=== PATIENT | male | born 1945 | race Caucasian/White ===

== ENCOUNTER → 2024-08-12 | Outpatient (CLI) | payer MEDICARE, BC, SELFPAY ==
[2024-08-12 12:00] LABS: Anion Gap 8 (7-16); BUN/Creatinine Ratio 19 Ratio (12-20); Blood Urea Nitrogen 23 mg/dL (9-23); Carbon Dioxide 24.4 mMol/L (20.0-31.0); Chloride 106 mMol/L (98-107); Creatinine (Component) 1.2 mg/dL (0.6-1.3); Glucose 118 mg/dL (74-106); Osmolality,Calculated 280 (275-295); Potassium 4.9 mMol/L (3.4-5.1); Sodium 138 mMol/L (136-145); eGFR > 60 See Note
== END | disposition home or self-care (01) ==
LOC: COPL 10:55
PROVIDERS: PCP Internal Medicine; Referring Provider Internal Medicine; Visit Provider Internal Medicine
DX: I10 Essential (primary) hypertension (principal)
CPT/HCPCS: 36415; 80069

== ENCOUNTER 2024-09-21 09:42 | Day surgery (SDC) | payer MEDICARE, BC, SELFPAY ==
[2024-09-14 14:59] VITALS: BMI 24.4
--- NOTE | 2024-09-18 00:01 | EKG_ITS ---
[facility] Test Date: 2024-09-18 Pat Name: DONTE BOBBY Department: Room: - Gender: Male Manufacturer Agent: MAYA : 1945 Requested By: Bennie Prieto Order Number: [id number] Reading MD: Bennie Prieto Measurements Intervals [place] Rate: 89 P: 58 MT: 188 QRS: 45 QRSD: 72 T: 62 QT: 319 QTc: 389 Interpretive Statements SINUS RHYTHM WITH SINUS ARRHYTHMIA POSSIBLE LEFT ATRIAL ENLARGEMENT SEPTAL MYOCARDIAL INFARCTION , OF INDETERMINATE AGE No previous ECG available for comparison /store/S0/[id number]/[id number].pdf
[2024-09-18 11:12] LABS: Basophils # (Auto) 0.1 Thou/mm3 (0.0-0.2); Basophils % (Auto) 1 % (0-2.5); Eosinophils # (Auto) 0.1 Thou/mm3 (0.0-0.5); Eosinophils % (Auto) 2 % (0-10); Hematocrit 45.2 % (41.0-53.0); Immature Granulocytes % (Auto) 0 % (0-0); Immature Granulocytes Auto 0.01 Thou/mm3 (0.00-0.00); Lymphocytes # (Auto) 1.9 Thou/mm3 (1.0-4.8); Lymphocytes % (Auto) 34 % (10-50); Mean Corpuscular HGB Conc 33.2 g/dl (31.0-37.0); Mean Corpuscular Hemoglobin 30.8 pg (25.0-35.0); Mean Corpuscular Volume 93 fL (80-100); Monocytes # (Auto) 0.4 Thou/mm3 (0.0-0.8); Monocytes % (Auto) 7 % (0-12); Neutrophils # (Auto) 3.2 Thou/mm3 (1.8-7.7); Neutrophils % (Auto) 56 % (37-80); Nucleated Red Blood Cell % 0 /100 WBC (0); Platelet Count 354 Thou/mm3 (140-440); RDW Standard Deviation 45.3 fL (35.1-43.9); Red Blood Count 4.87 Miln/mm3 (4.50-5.90); White Blood Count 5.8 Thou/mm3 (3.8-10.6)
[2024-09-18 11:24] LABS: Partial Thromboplastin Time 27.2 Seconds (22.0-36.0); Prothrombin Time 10.9 Seconds (9.0-12.2)
[2024-09-18 11:27] LABS: Anion Gap 8 (7-16); BUN/Creatinine Ratio 20 Ratio (12-20); Blood Urea Nitrogen 28 mg/dL (9-23); Calcium 9.7 mg/dL (8.3-10.6); Carbon Dioxide 23.9 mMol/L (20.0-31.0); Chloride 105 mMol/L (98-107); Creatinine (Component) 1.4 mg/dL (0.6-1.3); Estimated Creatinine Clearance 45.4 mL/min (>60); Glucose 182 mg/dL (74-106); Osmolality,Calculated 284 (275-295); Potassium 4.7 mMol/L (3.4-5.1); Sodium 137 mMol/L (136-145); eGFR 50 See Note
[2024-09-21] VITALS (15 sets, daily range): BP systolic 130–190; BP diastolic 63–100; PULSE 55–82; RESP 12–21; TEMP 36.8–37.1; O2SAT 96–100; BMI 23.8
--- NOTE | 2024-09-21 13:20 | EKG_ITS ---
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
[2024-09-21] MEDS: hydrALAZINE INJ 20 MG/ML VIAL 10 MG IV (13:42)
--- NOTE | 2024-09-21 13:50 | PC.NURSE ---
1333 patient is awake, alert, breathing unlabored, s/p LHC, stentx1 placed by Dr. Mack, dressing to right groin dry with no bleeding or hematoma. BP elevated, Dr. Mack order hydralazine 10mg IVP now. Patient to be on bedrest for 2hrs and go home 3hrs. 1342 hydralazine 10mg given as ordered by , report given to Mehdi ROSA
[2024-09-21] MEDS: ONDANSETRON INJ 2 MG/ML INJ 2 ML 4 MG IV (14:20)
--- NOTE | 2024-09-21 16:14 | PC.NURSE ---
Dr. Mack at bedside inspected surgical site to the right groin. No complications noted.
--- NOTE | 2024-09-21 18:43 | ESOP_ITS ---
RE: DONTE BOBBY : 1945 DATE OF OPERATION: 09/21/2024 PROCEDURE PERFORMED: 1. Diagnostic left heart cardiac catheterization, selective coronary angiogram, bypass graft angiogram left ventricular angiogram, CPT 12747. 2. Selective cannulation of left internal mammary artery, CPT 41565. 3. Selective bypass graft angiography. 4. PCI, PTCA stent placement of the vein graft to the left circumflex artery, placement of drug-eluting stent, XIENCE, 3.5 x 12 mm Synergy stent placement, with embolic protection device CPT 77987. 5. Intracoronary ultrasound examination with vein graft to circumflex artery. cpt 66900 6. PCI using embolic protection device FilterWire. 7. Iliofemoral angiogram followed by angioseal deployment. 8. Ultrasound guidance access of the right femoral artery. 9. Conscious sedation 60 min DIAGNOSES: Coronary artery disease, status post bypass surgery and angina pectoris, abnormal nuclear stress test. HISTORY AND INDICATIONS: The patient is an 79-year-old male with a known history of CAD, bypass graft surgery more than 17 years ago _ x4, has been doing well until recently. He has had shortness of breath, chest pressure and exertion. Nuclear scan showed anterolateral ischemia, inferolateral ischemia _. Coronary angiogram was recommended to assess the patient is a candidate for intervention, PCI procedure. DESCRIPTION OF PROCEDURE: The patient was brought to cardiac catheterization laboratory where he was given 2 mg Versed and 50 mcg of fentanyl for conscious sedation. Right groin_ was prepared in sterile fashion. Given 1% Xylocaine local anesthesia. Right femoral artery was cannulated by micropuncture technique under ultrasound guidance using a 6-Palestinian sheath introduced. Selective right and left coronary angiogram performed by Chai catheters and right bypass graft angiogram performed by Chai catheter and left bypass graft angiogram performed by AL1 diagnostic catheter. Left internal mammary artery was selectively cannulated by FR4 diagnostic catheter. Left internal mammary artery LAD angiogram performed. Subsequently, left heart catheterization, LV angiogram performed by FR4 diagnostic catheter. Following diagnostic intervention undertaken, diagnostic procedure showed following findings. Left heart catheterization showed following findings: Left ventricular pressure 116/10, aortic pressure 116/70. No gradient across the aortic valve. Left ventricular angiogram showed normal left ventricular wall motion, ejection fraction of 70%. Coronary angiogram showed following findings of the [place] coronary artery. The right coronary artery is large and dominant, total occlusion in proximal segment. Vein graft to RCA is widely patent. There is evidence of mild disease involving mid segment. Distal vessel ANABELA branches visualized well. Left coronary system: Left main coronary artery is normal. Left anterior descending artery is totally occluded in mid segment. There is a small ramus branch is patent. Circumflex artery is totally occluded. Left internal mammary is dilated widely. Excellent distal flow. Diagonal branch vein graft was occluded. There is a graft to circumflex artery. Proximal one-third of the body of the graft showed evidence of a moderate 80% stenosis, not sure whether this is critical Hence, intracoronary ultrasound exam was then performed. The patient was given IV heparin at 7000 units. AL1 guiding catheter which was cannulated at the left circumflex bypass vein graft subsequently changed into CLS 3.0 guiding catheter for better support. A 0.014 Runthrough guidewire was used to cross the lesion successfully. Intracoronary ultrasound exam was performed by IVUS [employer] catheter. IVUS showed evidence of minimum diameter less than 5 mm in at least one spot. The large graft appears to be 80% stenosed. Hence, proceeded with PCI stent placement. Subsequently, a FilterWire by [employer], 3.5 mm FilterWire was used across the lead successfully placed in the distal segment and using embolic protection device because of old degenerative graft, direct stent placement was performed. A 3.5 x 12 mm XIENCE CIVICO stent was deployed successfully into drug-eluting stent with three inflations and excellent angiographic results. Final angiogram showed widely patent vein graft to circumflex artery with no residual stenosis. SUMMARY OF FINDINGS: 1. Normal LV function. 2. Severe multivessel coronary artery disease, [place] coronary arteries_. RCA is occluded as well as left anterior descending and circumflex, all three vessels are 100% occluded. 3. MERCADO to LAD widely patent. 4. Vein graft to diagonal occluded. 5. RCA vein graft is patent. 6. Vein graft to circumflex artery showed 80% stenosis. Underwent IVUS examination confirmed the stenosis is severe and using embolic protection device, stent placement performed by 3.5 mm x 12 mm XIENCE stent was deployed. pre 80% post 0 Surjit 3 before and after The patient had no complications. Estimated blood loss 0 mL. The patient was given aspirin 81 mg. Brilinta loading dose is given in the lab nurse. Will be discharged home on aspirin 81 mg daily, Brilinta 90 mg twice daily. Follow up in one week in my office. DT: 16:43:59 TT: 18:29:00 Ref: [id number] - TID: [id number] MTDD
== END 2024-09-21 16:36 | disposition home or self-care (01) ==
PROVIDERS: Referring Provider Internal Medicine Cardiovascular Disease; Visit Provider Internal Medicine Cardiovascular Disease
PROC: (CPT 93459; principal; 2024-09-21 11:30)
DX: I25.118 Atherosclerotic heart disease of native coronary artery with other forms of angina pectoris (principal); I25.82 Chronic total occlusion of coronary artery; Z95.1 Presence of aortocoronary bypass graft; Z01.810 Encounter for preprocedural cardiovascular examination
CPT/HCPCS: 93459; 36216; G0278; 36415; 80048; 85025; 85347; 85610; 85730; 93005; 99152; 99153; A4649; C1760; C1769; C1874; C1884; C1887; C1894; J0171; J0360; J0461; J1643; J2060; J2250; J2310; J2371; J2405; J3010; J3490; Q9967; A9270; J1644

== ENCOUNTER → 2024-12-18 | Outpatient (CLI) | payer MEDICARE, BC, SELFPAY ==
[2024-12-18 12:57] LABS: Glucose Estimated Average 137 mg/dL (80-131); Hemoglobin A1C 6.4 % Hgb (4.8-6.0)
[2024-12-18 13:17] LABS: Alanine Aminotransferase 21 U/L (10-49); Albumin, Serum 4.4 gm/dL (3.4-4.8); Albumin/Globulin Ratio 1.9 (1.2-2.2); Alkaline Phosphatase 71 U/L (46-116); Anion Gap 8 (7-16); Aspartate Amino Transferase 19 U/L (0-34); BUN/Creatinine Ratio 16 Ratio (12-20); Blood Urea Nitrogen 19 mg/dL (9-23); Calcium 9.5 mg/dL (8.3-10.6); Calcium (Corrected) 9.5 mg/dL (8.5-10.1); Carbon Dioxide 26.6 mMol/L (20.0-31.0); Cardiac Risk Estimate 3.8 RATIO (4.0-6.7); Chloride 105 mMol/L (98-107); Cholesterol 204 mg/dL (132-200); Creatinine (Component) 1.2 mg/dL (0.6-1.3); Globulin 2.3 gm/dL (2.3-3.5); Glucose 128 mg/dL (74-106); HDL Cholesterol 53 mg/dL (40-60); LDL Cholesterol,Calculated 110 mg/dL (0-130); Osmolality,Calculated 283 (275-295); Potassium 4.8 mMol/L (3.4-5.1); Sodium 140 mMol/L (136-145); Total Protein 6.7 gm/dL (5.7-8.2); Triglycerides 207 mg/dL (30-150); eGFR > 60 See Note
[2024-12-18 14:14] LABS: Bilirubin,Total 0.9 mg/dL (0.3-1.2)
[2024-12-18 15:44] LABS: Creatinine MALB Rnd Ur 174 mg/dL (30-125); Microalbumin Creat Ratio 10 mg/gCrea (<30); Microalbumin, Random Urine 17 mg/L (0-300)
== END | disposition home or self-care (01) ==
PROVIDERS: PCP Internal Medicine; Referring Provider Internal Medicine; Visit Provider Internal Medicine
DX: E11.65 Type 2 diabetes mellitus with hyperglycemia (principal); E78.2 Mixed hyperlipidemia; I10 Essential (primary) hypertension
CPT/HCPCS: 36415; 80053; 80061; 82043; 82570; 83036; 84153

== ENCOUNTER → 2025-03-31 | Outpatient (CLI) | payer MEDICARE, BC, SELFPAY ==
[2025-03-31 11:47] LABS: Basophils # (Auto) 0.0 Thou/mm3 (0.0-0.2); Basophils % (Auto) 1 % (0-2.5); Eosinophils # (Auto) 0.1 Thou/mm3 (0.0-0.5); Eosinophils % (Auto) 3 % (0-10); Hematocrit 40.8 % (41.0-53.0); Hemoglobin 14.3 g/dL (13.5-16.0); Immature Granulocytes Auto 0.02 Thou/mm3 (0.00-0.00); Lymphocytes # (Auto) 1.6 Thou/mm3 (1.0-4.8); Lymphocytes % (Auto) 32 % (10-50); Mean Corpuscular HGB Conc 35.0 g/dl (31.0-37.0); Mean Corpuscular Hemoglobin 31.8 pg (25.0-35.0); Mean Corpuscular Volume 91 fL (80-100); Monocytes # (Auto) 0.4 Thou/mm3 (0.0-0.8); Monocytes % (Auto) 7 % (0-12); Neutrophils # (Auto) 2.8 Thou/mm3 (1.8-7.7); Neutrophils % (Auto) 57 % (37-80); Nucleated Red Blood Cell # 0.00 Thou/mm3 (0.00-0.00); Nucleated Red Blood Cell % 0 /100 WBC (0); Platelet Count 285 Thou/mm3 (140-440); RDW Standard Deviation 43.4 fL (35.1-43.9); Red Blood Count 4.49 Miln/mm3 (4.50-5.90); White Blood Count 4.9 Thou/mm3 (3.8-10.6)
[2025-03-31 11:54] LABS: Glucose Estimated Average 128 mg/dL (80-131); Hemoglobin A1C 6.1 % Hgb (4.8-6.0)
[2025-03-31 12:16] LABS: Alanine Aminotransferase 18 U/L (10-49); Albumin, Serum 4.2 gm/dL (3.4-4.8); Albumin/Globulin Ratio 2.0 (1.2-2.2); Alkaline Phosphatase 60 U/L (46-116); Anion Gap 11 (7-16); Aspartate Amino Transferase 18 U/L (0-34); BUN/Creatinine Ratio 18 Ratio (12-20); Bilirubin,Total 1.2 mg/dL (0.3-1.2); Blood Urea Nitrogen 23 mg/dL (9-23); Calcium 9.4 mg/dL (8.3-10.6); Calcium (Corrected) 9.4 mg/dL (8.5-10.1); Carbon Dioxide 24.5 mMol/L (20.0-31.0); Cardiac Risk Estimate 3.8 RATIO (4.0-6.7); Chloride 108 mMol/L (98-107); Cholesterol 194 mg/dL (132-200); Creatinine (Component) 1.3 mg/dL (0.6-1.3); Free T4 (Free Thyroxine) 1.18 ng/dL (0.89-1.76); Globulin 2.1 gm/dL (2.3-3.5); Glucose 112 mg/dL (74-106); HDL Cholesterol 51 mg/dL (40-60); LDL Cholesterol,Calculated 107 mg/dL (0-130); Osmolality,Calculated 289 (275-295); Potassium 4.7 mMol/L (3.4-5.1); Sodium 143 mMol/L (136-145); Thyroid Stimulating Hormone 1.64 uIU/mL (0.55-4.78); Total Protein 6.3 gm/dL (5.7-8.2); Triglycerides 180 mg/dL (30-150); eGFR 55 See Note
[2025-03-31 13:39] LABS: Collection Type, Urine Clean Catch
[2025-03-31 14:38] LABS: Bilirubin,Urine Negative (Negative); Blood,Urine Negative (Negative); Clarity,Urine Clear (Clear/Hazy); Color,Urine Lt-Yellow (Lt Yel-Yel); Glucose, Urine Negative (Negative); Ketones,Urine Negative (Negative); Leukocyte Esterase,Urine Negative (Negative); Nitrite,Urine Negative (Negative); PH,Urine 5.0 (5.0-7.0); Protein,Urine Negative (Neg - Trace); RBC,Urine < 1 /hpf (0-3); Specific Gravity,Urine 1.024 (1.001-1.035); Squamous Epithelial Cell,Urine 1 /hpf (0-5); Urobilinogen,Urine Negative mg/dL (0.0-1.0); WBC,Urine 1 /hpf (0-5)
[2025-03-31 14:44] LABS: Creatinine MALB Rnd Ur 145 mg/dL (30-125); Microalbumin Creat Ratio 6 mg/gCrea (<30); Microalbumin, Random Urine 8 mg/L (0-300)
== END | disposition home or self-care (01) ==
LOC: COPL 10:47
PROVIDERS: PCP Internal Medicine; Referring Provider Internal Medicine; Visit Provider Internal Medicine
DX: Z00.00 Encounter for general adult medical examination without abnormal findings (principal); E11.65 Type 2 diabetes mellitus with hyperglycemia; I10 Essential (primary) hypertension; E78.2 Mixed hyperlipidemia
CPT/HCPCS: 36415; 80053; 80061; 81001; 82043; 82570; 83036; 84153; 84439; 84443; 85025; G0103

== ENCOUNTER 2025-06-23 14:04 | Inpatient (IN) | payer MEDICARE, BC, SELFPAY ==
[2025-06-23] VITALS (14 sets, daily range): BP systolic 150–204; BP diastolic 78–95; PULSE 49–79; RESP 13–98; TEMP 36.2–36.8; O2SAT 95–98; BMI 25.4
--- NOTE | 2025-06-23 13:42 | EKG_ITS ---
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
--- NOTE | 2025-06-23 14:11 | EKG_ITS ---
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
--- NOTE | 2025-06-23 14:22 | PD.EDCHEST ---
ED Chest Pain RME/HPI General Chief Complaint: Chest Pain Stated Complaint: CHEST PAIN Time Seen by Provider: 06/23/25 14:21 Arrival date/time: 06/23/25 14:04 RME / HPI RME / HPI narrative: 80-year-old male patient with complex medical history of hypertension diabetes mellitus, status post CABG 2007, 1 stent placement last year, currently taking 81 mg of aspirin, came in for evaluation regarding chest pain. Been having chest pain for the last 5 days, today is getting worse severity 9 out of 10. Described as something sitting on his chest. Patient went to the clinic of Dr. Mack, and was sent here for ACS management. Patient is for angiogram tomorrow. Patient denies any cough denies any dizziness denies any other complaints. Related Data Home Medications ?Medication ?Instructions ?Recorded ?Confirmed metformin 500 mg tablet 1,000 mg PO BID #0 tabs 03/15/16 09/21/24 (Glucophage) Held on 09/21/24. Instructions: Resume on 09/23/24. Continue to take this medciation on this date at your usual time. aspirin 81 mg tablet 81 mg PO QDAY 09/21/24 09/21/24 gabapentin enacarbil 600 mg 300 mg PO BID 09/21/24 09/21/24 tablet,extended release inclisiran 284 mg/1.5 mL 284 mg subcut USEASDIRECTD 09/21/24 09/21/24 subcutaneous syringe (Leqvio) Previous Rx's ?Medication ?Instructions ?Recorded ticagrelor 90 mg tablet (Brilinta) 90 mg PO BID 30 days #60 tabs 09/21/24 Allergies Allergy/AdvReac Type Severity Reaction Status Date / Time nitroglycerin Allergy Severe Hypotension Verified 09/21/24 10:35 Review of Systems Review of Systems Narrative Review of Systems: Review of system reviewed and within normal limits except mentioned in HPI ED Exam Narrative Physical exam: VITAL SIGNS: Reviewed. GENERAL APPEARANCE: Alert and interactive, follows commands, no acute distress, HEAD AND FACE: Non-traumatic. ENT: PERRL, pink conjunctivitis, eyelid no trauma, Mucous membrane moist. NECK: Supple, nontender, no nuchal rigidity. CHEST: Left-sided tenderness, no crepitus, no paradoxical movement, no retractions. Midsternal scar noted LUNGS: Clear, well ventilated, symmetric, no rales, no wheezing, no ronchi, no stridor, good breath sounds bilaterally. HEART: Regular rate, regular rhythm, no murmur, no gallops. ABDOMEN: Soft, positive bowel sounds, nondistended, no guarding, nontender, no rebound, no masses, RECTAL: Deferred. GENITAL: Deferred. NEUROLOGICAL: Gross motor function intact sensory function intact, Appropriate for age. MUSCULOSKELETAL: low back nontender, full range of motion. EXTREMITIES: Nontender, full range of motion. SKIN: Color pink, dry, no rash, no lacerations, no abrasions, no contusions. LYMPHATICS: Deferred. Course Quality Measures none Orders Category Date Time Status COVID-19 Screening Questionnaire NOW Care 06/23/25 15:44 Active Decision to Admit X1 Care 06/23/25 15:44 Active EKG (ED ONLY) *Do not use* NOW Care 06/23/25 14:11 Completed Notify provider NOW Care 06/23/25 14:41 Active Consult to Cardiology Stat Cons 06/23/25 14:45 Ordered EKG (ED Only) Stat Exams 06/23/25 14:11 Draft XR chest 1V Stat Exams 06/23/25 14:34 Completed CBC Stat Lab 06/23/25 14:47 Completed CMP [Comprehensive Metabolic Panel] Stat Lab 06/23/25 14:47 Completed Magnesium Stat Lab 06/23/25 14:47 Completed PT [Prothrombin Time with INR] Stat Lab 06/23/25 14:47 Completed PTT [Partial Thromboplastin Time] Stat Lab 06/23/25 14:47 Completed Partial Thromboplastin Time AM DRAW Lab 06/25/25 05:00 Ordered Prothrombin Time with INR AM DRAW Lab 06/25/25 05:00 Ordered Troponin I Stat Lab 06/23/25 14:47 Completed Aspirin Med 06/23/25 14:41 Discontinued 325 mg PO X1 ONE Clopidogrel [Plavix] Med 06/23/25 14:41 Discontinued 75 mg PO X1 ONE Heparin Inj Med 06/23/25 14:41 Discontinued 4,000 unit IV X1 ONE Heparin/D5w 25K 250 ML Ivpb [Heparin in D5w Ivpb] Med 06/23/25 14:45 Active 25,000 unit in 250 ml IV 12 units/kg/hr Vital Signs Vital signs: Vital Signs Temperature 98.1 F 06/23/25 14:17 Pulse Rate 79 06/23/25 14:17 Respiratory Rate 20 06/23/25 14:17 Blood Pressure 175/82 H 06/23/25 14:17 Pulse Oximetry (%) 96 06/23/25 14:17 Oxygen Delivery Method Room Air 06/23/25 14:17 Chest Pain MDM Narrative MDM Narrative:: 80-year-old male patient with complex medical history of hypertension diabetes mellitus, status post CABG 2007, 1 stent placement last year, currently taking 81 mg of aspirin, came in for evaluation regarding chest pain. Been having chest pain for the last 5 days, today is getting worse severity 9 out of 10. Described as something sitting on his chest. Patient went to the clinic of Dr. Mack, and was sent here for ACS management. Patient is for angiogram tomorrow. Patient denies any cough denies any dizziness denies any other complaints. EKG shows sinus rhythm, with occasional supraventricular premature complexes, ventricular to 81 bpm, no ST segment elevation or depression noted. Patient's workup today all came back unremarkable troponin is normal also. Spoke with Dr. Mack, who told me to start the patient on aspirin Plavix and heparin drip ACS protocol. Hospitalist to admit I spoke with hospitalist, who admitted the patient. Patient data External records reviewed:: None Clinical information provided by:: patient Social determinants that could affect healthcare access:: none Patient has the following chronic illnesses:: CAD, status post CABG hypertension diabetes mellitus How is presenting disease/condition affected by chronic disease/condition?: exacerbated by Evaluation data The following diagnostics were reviewed and interpreted by me:: lab results, radiology exam(s) and EKG tracing(s) Lab and/or radiology exams considered but not ordered:: None Interpretation Summary: I personally reviewed and interpreted the x-ray of this patient. There is no acute abnormalities found, no infiltrates no pneumothorax no hemothorax normal chest x-ray. Review of other structures was without significant abnormal findings also. I additionally reviewed the radiologist report and agree with the interpretation. Medications / Prescriptions Medications or Prescriptions considered but not ordered:: None Medication administrations:: Medication Administration History Heparin Sodium/Dextrose (Heparin In D5w Ivpb) 25,000 unit in 250 mls @ 9.641 mls/hr IV .Q24H [facility]; Protocol Stop: 07/07/25 14:44 Discontinued Medications Aspirin (Aspirin 325 Mg Tablet) 325 mg PO X1 ONE Stop: 06/23/25 14:42 Last Admin: 06/23/25 15:06 Dose: 325 mg Documented By: GM Clopidogrel Bisulfate (Clopidogrel Bisulfate 75 Mg Tablet) 75 mg PO X1 ONE Stop: 06/23/25 14:42 Last Admin: 06/23/25 15:06 Dose: 75 mg Documented By: GM Heparin Sodium (Porcine) (Heparin Sod Inj 5000 Unit/Ml Vial) 4,000 unit IV X1 ONE; Protocol Stop: 06/23/25 14:42 Heparin ACS protocol, aspirin and Plavix Consultations Consultation(s) initiated? (list below): Yes Consultation #1 (Physician, Specialty, Details): Dr. Mack inventory worker, discussed the case thank you DrEliezer Diagnosis Chest Pain Differential Diagnosis: pneumothorax and chest pain Most likely diagnosis given after review of the tests above:: Chest pain, ACS Admission Indicated Admission indicated?: indicated Admission Request Was there a request for admission?: Yes Admission Attestation Admission request attestation: Discussed case with [Dr. Hoyt] from Hospitalist service regarding admission. Discussed patients ED course, exam findings, labs, and radiology results. The Hospitalist [agrees] to accept the patient for admission. Disposition Plan Disposition Plan: Admit Discharge Plan Plan Patient Disposition: Admit Acute Care w/in Hospital Discharge Disposition comment: Stable Prescriptions/Referrals Prescriptions/Med Rec: No Action metformin [Glucophage] 500 MG tablet 1,000 mg PO BID Qty: 0 gabapentin enacarbil 600 mg Tablet Extended Release 300 mg PO BID Rx Instructions: administer daily at approximately 5 PM with food/evening meal Leqvio 284 mg/1.5 mL Syringe 284 mg SUBCUT USEASDIRECTD Rx Instructions: [id number] aspirin 81 mg Tablet 81 mg PO QDAY Brilinta 90 mg Tablet 90 mg PO BID 30 Days Qty: 60 1RF Referrals: Selwyn Sosa MD [Primary Care Provider, Internal Medicine] - In 1 week Problem List Clinical Impression: Chest pain Patient/Caregiver Discharge Instructions Print Language: Turkish Stand Alone Forms: Hailey Award Info., Patient Portal Info Letter
--- NOTE | 2025-06-23 14:34 | XR_ITS ---
Examination: AP chest single view Technique one AP portable upright chest single view Date and time: June 23, 2025, 1445 hours, comparison May 23, 2021 INDICATIONS: Chest pain shortness of breath today. FINDINGS: Normal heart size. CABG. The lungs are clear IMPRESSION: No active disease
[2025-06-23] MEDS: CLOPIDOGREL BISULFATE 75 MG TABLET PO (15:06)
[2025-06-23 15:07] LABS: Basophils # (Auto) 0.0 Thou/mm3 (0.0-0.2); Basophils % (Auto) 1 % (0-2.5); Eosinophils # (Auto) 0.1 Thou/mm3 (0.0-0.5); Eosinophils % (Auto) 3 % (0-10); Hematocrit 42.7 % (41.0-53.0); Hemoglobin 14.5 g/dL (13.5-16.0); Immature Granulocytes Auto 0.02 Thou/mm3 (0.00-0.00); Lymphocytes # (Auto) 1.6 Thou/mm3 (1.0-4.8); Lymphocytes % (Auto) 28 % (10-50); Mean Corpuscular HGB Conc 34.0 g/dl (31.0-37.0); Mean Corpuscular Hemoglobin 32.6 pg (25.0-35.0); Mean Corpuscular Volume 96 fL (80-100); Monocytes # (Auto) 0.4 Thou/mm3 (0.0-0.8); Monocytes % (Auto) 8 % (0-12); Neutrophils # (Auto) 3.3 Thou/mm3 (1.8-7.7); Neutrophils % (Auto) 60 % (37-80); Nucleated Red Blood Cell # 0.00 Thou/mm3 (0.00-0.00); Nucleated Red Blood Cell % 0 /100 WBC (0); Platelet Count 307 Thou/mm3 (140-440); RDW Standard Deviation 48.3 fL (35.1-43.9); Red Blood Count 4.45 Miln/mm3 (4.50-5.90); White Blood Count 5.5 Thou/mm3 (3.8-10.6)
[2025-06-23 15:21] LABS: INR 1.0 (0.9-1.3); Partial Thromboplastin Time 26.3 Seconds (22.0-36.0); Prothrombin Time 10.4 Seconds (9.0-12.2)
[2025-06-23 15:23] LABS: Alanine Aminotransferase 20 U/L (10-49); Albumin, Serum 4.4 gm/dL (3.4-4.8); Albumin/Globulin Ratio 2.1 (1.2-2.2); Alkaline Phosphatase 64 U/L (46-116); Anion Gap 8 (7-16); Aspartate Amino Transferase 20 U/L (0-34); BUN/Creatinine Ratio 13 Ratio (12-20); Bilirubin,Total 0.7 mg/dL (0.3-1.2); Blood Urea Nitrogen 15 mg/dL (9-23); Calcium 9.4 mg/dL (8.3-10.6); Calcium (Corrected) 9.4 mg/dL (8.5-10.1); Carbon Dioxide 25.6 mMol/L (20.0-31.0); Chloride 108 mMol/L (98-107); Creatinine (Component) 1.2 mg/dL (0.6-1.3); Estimated Creatinine Clearance 49.0 mL/min (>60); Globulin 2.1 gm/dL (2.3-3.5); Glucose 200 mg/dL (74-106); Magnesium 1.6 mg/dL (1.6-2.6); Osmolality,Calculated 289 (275-295); Potassium 4.6 mMol/L (3.4-5.1); Sodium 142 mMol/L (136-145); Total Protein 6.5 gm/dL (5.7-8.2); Troponin I < 0.020 ng/mL (0.0-0.045); eGFR > 60 See Note
[2025-06-23] MEDS: HEPARIN SOD INJ 5000 UNIT/ML VIAL 4000 UNIT IV (15:46)
[2025-06-23] MEDS: Heparin/D5w 25K 250 ML Ivpb 25,000 UNIT/250 ML BAG 9.641 UNIT IV (15:50)
[2025-06-23] MEDS: LABETALOL INJ 5 MG/ML VIAL 20 ML 10 MG IVP (16:12)
--- NOTE | 2025-06-23 16:46 | ESHP_ITS ---
<Statement entered by King Jara MD - 07/02/25 08:17> I reviewed above note and agree with findings and plans. I have also personally examined the patient with medicine team and went over assessment and plan with medical team including [employer]ribusiness internship and resident physician. <Statement entered by Riccardo Oneal MD - 06/23/25 18:33> 80-year-old male with past medical history of CAD s/p CABG and s/p JESSICA x 1 of LCx on 2023 currently on Brilinta, DM 2, hypertension, hyperlipidemia, and Hx of kidney stones was admitted to the hospital on 06/23/2025 after being told by his pipe bowl paint trimmer to come to the ER concerning chest pain. At this time patient will be started on heparin drip per ACS protocol and patient will be n.p.o. after midnight for heart cath tomorrow. Cardiology was consulted. Will give IV labetalol 10 mg as needed for SBP above 190 every 6 hours. Note reviewed and agree with resident's care plan as documented except as noted above. Case disclosed with attending Dr. Marek Oneal PGY2 Disclaimer: Even though this this note was dictated by speech recognition and even though it was carefully revised there may still be minor errors in manager radiation due to voice recognition software. Documentation for date of: 06/23/25 HPI History of Present Illness Chief complaint: chest pain History of present illness: Ezequiel Garcia 80M pmhx significant for CAD s/p CABGx5 (2007) and s/p DESx1 vein graft of LCx (2023) on Brillinta, NIDDM2, HTN, HLD and hx of kidney stones who was sent from pipe bowl paint trimmer Dr. Mack's office for chest pain. Patient reports that her first episode of chest pain occurred on Tuesday 06/19 while he was sweeping the floor, described as central non-radiating pressure-like 10/10 pain that lasted for 3 to 4 minutes, associated with lightheadedness and not associated with diaphoresis or SOB. Next episode occurred on Saturday while he was sitting there lasted for an hour with similar chest pain. Patient denied any episodes on Saturday or Saturday. Third episode occurred this morning 06/23 while he was sitting, lasted all day described as 10/10 and similar to initial episode. At this time patient endorses 6/10 chest pain. Denies SOB, fever or palpitations. Reports home BP 160-170 SBP. PMHx: as above Surgical Hx: remote tonsillectomy, R inguinal hernia repair 1971, CABG 2007 FHx: Noncontributory Social Hx: denies tobacco or recreational/illicit drug use, 1 beer every 40 years Allergies: nitro hypotension, prednisone rash Medications: ASA 81 mg BID, gabapentin 300 mg BID, Leqvio q6 months, metformin 1g BID, Brillinta 90 mg BID In ED, BP 173/82 HR 79 RR 20 afebrile satting 96% RA, Na 142, K 4.6, Cl 108, bicarb 25.6, BUN 15, Cr 1.2, glucose 200, Mg 1.6, trops neg. EKG showed sinus rhythm with PACs rate 71 QTc 384, CXR shows no active disease. In ED, given ASA loading, Plavix x1, heparin ggt, and IV labetalol 10 mg x1. Cardiology consulted, planned for [facility] 06/24 at 1100. Patient was admitted for further workup and management of chest pain. Review of Systems Review of Systems Systems Reviewed: All systems reviewed, normal except as documented Exam Vital Signs Temp Pulse Resp BP Pulse Ox O2 Del Method 98.2 F 73 17 204/85 H 96 Room Air 06/23/25 16:29 06/23/25 16:29 06/23/25 16:29 06/23/25 16:29 06/23/25 16:29 06/23/25 16:29 Narrative Exam GENERAL: AOx3, no acute distress HEENT: NC/AT, mucous membranes moist, bilateral sclera anicteric CARDIOVASCULAR: regular rate and rhythm, S1/S2 present, 2/6 systolic murmur PULMONARY: clear to auscultation bilaterally, no rales/rhonchi/wheezes ABDOMINAL: soft, non-tender, non-distended, no rebound/guarding, bowel sounds present EXTREMITIES: no peripheral edema SKIN: warm and dry, intact, no rashes NEURO: CN II-XII grossly intact, no focal deficits, alert, following commands Results: Labs 06/24/25 04:35 06/24/25 04:35 Labs: Short CBC 06/23/25 Range/Units 14:47 WBC 5.5 (3.8-10.6) Thou/mm3 Hgb 14.5 (13.5-16.0) g/dL Hct 42.7 (41.0-53.0) % Plt Count 307 (140-440) Thou/mm3 BMP 06/23/25 14:47 Sodium 142 Potassium 4.6 Chloride 108 H Carbon Dioxide 25.6 BUN 15 Creatinine 1.2 Glucose 200 H Calcium 9.4 Cardiac Enzymes 06/23/25 Range/Units 14:47 Troponin I < 0.020 (0.0-0.045) ng/mL Liver Function 06/23/25 Range/Units 14:47 Total Bilirubin 0.7 (0.3-1.2) mg/dL AST 20 (0-34) U/L ALT 20 (10-49) U/L Alkaline Phosphatase 64 (46-116) U/L Albumin 4.4 (3.4-4.8) gm/dL Quality Measures Quality Measures none Advance care planning discussed with:: patient Medications Home Medications and Allergies Home Medications ?Medication ?Instructions ?Recorded ?Confirmed ?Type metformin 500 mg tablet 1,000 mg PO BID #0 tabs 02/2206/23/25 History (Glucophage) Held on 09/21/24. Instructions: Resume on 09/23/24. Continue to take this medciation on this date at your usual time. aspirin 81 mg tablet 81 mg PO QDAY 09/21/2406/23 History gabapentin enacarbil 600 mg 300 mg PO BID 09/21/2410/17 History tablet,extended release inclisiran 284 mg/1.5 mL 284 mg subcut USEASDIRECTD 1 06/23/25 History subcutaneous syringe (Leqvio) Allergies Allergy/AdvReac Type Severity Reaction Status Date / Time nitroglycerin Allergy Severe Hypotension Verified 09/21/24 10:35 Visit Medications Acetaminophen (Acetaminophen 325 Mg Tablet) 650 mg PO Q6H PRN PRN Reason: Fever >100.4 or pain Stop: 07/23/25 16:32 Heparin Sodium/Dextrose (Heparin In D5w Ivpb) 25,000 unit in 250 mls @ 9.641 mls/hr IV .Q24H SHANTEL; Protocol Stop: 07/07/25 14:44 Last Admin: 06/23/25 15:50 Dose: 12 units/kg/hr, 9.641 mls/hr Labetalol HCl (Labetalol Inj 5 Mg/Ml Vial 20 Ml) 10 mg IVP X1 PRN PRN Reason: hypertension Stop: 07/23/25 16:42 Ondansetron HCl (Ondansetron Inj 2 Mg/Ml Inj 2 Ml) 4 mg IVP Q6H PRN; Protocol PRN Reason: NAUSEA OR VOMITING Stop: 07/23/25 16:32 Sennosides (Senna Tablet) 1 tab PO QDAY PRN; Protocol PRN Reason: constipation Stop: 07/23/25 16:32 Discontinued Medications Aspirin (Aspirin 325 Mg Tablet) 325 mg PO X1 ONE Stop: 06/23/25 14:42 Last Admin: 06/23/25 15:06 Dose: 325 mg Clopidogrel Bisulfate (Clopidogrel Bisulfate 75 Mg Tablet) 75 mg PO X1 ONE Stop: 06/23/25 14:42 Last Admin: 06/23/25 15:06 Dose: 75 mg Heparin Sodium (Porcine) (Heparin Sod Inj 5000 Unit/Ml Vial) 4,000 unit IV X1 ONE; Protocol Stop: 06/23/25 14:42 Last Admin: 06/23/25 15:46 Dose: 4,000 unit Labetalol HCl (Labetalol Inj 5 Mg/Ml Vial 20 Ml) 10 mg IVP X1 ONE Stop: 06/23/25 16:07 Last Admin: 06/23/25 16:12 Dose: 10 mg Assessment & Plan Plan Ezequiel Garcia 80M pmhx significant for CAD s/p CABGx5 (2007) and s/p DESx1 vein graft of LCx (2023) on Brillinta, NIDDM2, HTN, HLD and hx of kidney stones who was sent to [facility] ED on 06/23 from pipe bowl paint trimmer Dr. Mack's office for chest pain, admitted for workup and C. #Unstable Angina #CAD s/p CABG x5 (2007) and s/p DESx1 vein graft of LCx (2023) Presented with 3 episodes of 10/10 central, nonradiating chest pain with lightheadedness, not associated with diaphoresis or SOB. At home on ASA 81 mg QD and Brillinta 90 mg BID. Admission trops neg, EKG no ST elevation, sinus rhythm with PACs rate 71 Given patient's extensive cardiac history, patient will likely need cardiac catheterization for further investigation. Patient underwent cardiac catheterization 09/21/2024 which showed severe multivessel coronary artery disease, [place] coronary arteries. RCA, LAD, circumflex all 100% occluded. [place] to LAD widely patent, vein graft to diagonal occluded, RCA vein graft is patent, vein graft to circumflex artery showed 80% stenosis in which stent was placed. s/p ASA loading dose and Plavix x1 in ED Plan: - Cardiology consulted, [facility] planned for 06/24 1100 - Continue heparin ggt - IV morphine 1 mg q4h prn for chest pain as allergic to nitro - Telemetry for cardiac monitoring - Keep K>4 and Mg>2 at all times #NIDDM2 #HLD #HTN At home patient is on metformin 1g BID and Leqvio 284 mg [id number]. Patient does not seem to be on any hypertensives at home and reports SBP at home 160-170. Plan: - SSI step [address] - IV labetalol 10 mg q6h prn for SBP>190 - F/u lipid panel, A1c and TSH/T4 Hospital management: Lines: PIV Diet: Cardiac, NPO after midnight Bowel: Senna prn GI prophylaxis: not indicated DVT prophylaxis: heparin ggt Disposition: tele for scheduled cardiac cath 06/24 CODE STATUS: FULL CODE Plan of care discussed with attending Dr. Jara, and PGY-2 Dr. Benz. Margareth Gatica, DO PGY-1 Internal Medicine
[2025-06-23] MEDS: NITROGLYCERIN OINT 2% 1 INCH PACKET TOP (17:45)
--- NOTE | 2025-06-23 17:52 | ESCONSULT_ITS ---
<Statement entered by Bennie Mack MD - 06/24/25 17:01> I personally examined the patient and evaluated the patient with resident physician PGY 2 Dr. Musa Tavera the patient is very well-known to me as long signs of CAD stent placement of the bypass graft circumflex artery bypass graft surgery in 2007 came to the hospital because severe substernal chest pain at rest patient unstable angina pectoris classic symptoms will aggressively manage aspirin Plavix and heparin blood pressure is quite high we will start him on antihypertensive drug therapy schedule for coronary angiogram bypass graft angiogram tomorrow morning risk-benefit as well as alternatives explained he agreed to have the procedure performed. HPI Data of Consult Requesting Physician: King Jara MD Admitting Provider: King Jara MD Attending Provider: King Jara MD Primary Care Provider: Selwyn Sosa MD Consult Narrative History of present illness: Ezequiel Garcia is an 80-year-old male with a significant cardiac history including CAD status post CABG in 2007, stenting of left circumflex vein graft in 2023 on aspirin and plavix, type 2 diabetes mellitus, and hyperlipidemia who was sent from Dr. Mack's office to the ED after waking up in the morning with crusting substernal chest pain that radiated to his left arm and jaw with associated shortness of breath. States that he felt similar symptoms with his prior blockage in 2023. Although EKG was unremarkable, given history of coronary artery disease and current symptoms recommend that he go to the ED and be started on heparin drip for scheduled cardiac cath the following morning. In the ED, he was given loading dose of aspirin and plavix and heparin drip was started. Blood pressure was also noted to be elevated and was 180/90 at bedside after being given labetalol 10 mg IV so was given amlodipine 5 mg x1 and started on it daily in addition to nitroglycerin paste. Otherwise, he was on room and and other vitals were stable. Repeat EKG without any significant T wave or ST changes and CXR was unremarkable. Initial troponins negative. Medications: Plavix 75 mg, aspirin 81 mg, gabapentin 600 mg, metformin 1000 mg twice daily, Leqvio SC injections SHx: Denies smoking, significant alcohol use, illicit drug use PSHx: CABG 2007, angiogram in 2024 Allergy: Nitroglycerin cc:: cc: King Jara MD Review of Systems Review of Systems Systems Reviewed: All systems reviewed, normal except as documented Exam Vital Signs Temp Pulse Resp BP Pulse Ox O2 Del Method 98.2 F 64 17 193/79 H 96 Room Air 06/23/25 16:29 06/23/25 17:48 06/23/25 16:29 06/23/25 17:48 06/23/25 16:29 06/23/25 16:29 Narrative Exam General: AOx3, no acute distress, able to speak full sentences HEENT: NC/AT, mucous membranes moist, bilateral sclera anicteric Cardiovascular: regular rate and rhythm, S1/S2 present, no murmurs appreciated Pulmonary: clear to auscultation bilaterally, no rales/rhonchi/wheezes Abdominal: soft, non-tender, non-distended, no rebound/guarding, normal bowel sounds present Musculoskeletal: normal ROM, no peripheral edema Skin: warm and dry, intact, no rashes Neuro: CN II-XII intact, no focal deficits Results Labs 06/23/25 14:47 06/23/25 14:47 Labs: Short CBC 06/23/25 Range/Units 14:47 WBC 5.5 (3.8-10.6) Thou/mm3 Hgb 14.5 (13.5-16.0) g/dL Hct 42.7 (41.0-53.0) % Plt Count 307 (140-440) Thou/mm3 BMP 06/23/25 14:47 Sodium 142 Potassium 4.6 Chloride 108 H Carbon Dioxide 25.6 BUN 15 Creatinine 1.2 Glucose 200 H Calcium 9.4 Cardiac Enzymes 06/23/25 Range/Units 14:47 Troponin I < 0.020 (0.0-0.045) ng/mL Liver Function 06/23/25 Range/Units 14:47 Total Bilirubin 0.7 (0.3-1.2) mg/dL AST 20 (0-34) U/L ALT 20 (10-49) U/L Alkaline Phosphatase 64 (46-116) U/L Albumin 4.4 (3.4-4.8) gm/dL Quality Measures Quality Measures none Advance care planning discussed with:: patient Medications Home Medications and Allergies Home Medications ?Medication ?Instructions ?Recorded ?Confirmed ?Type metformin 500 mg tablet 1,000 mg PO BID #0 tabs 02/2206/23/25 History (Glucophage) Held on 09/21/24. Instructions: Resume on 09/23/24. Continue to take this medciation on this date at your usual time. aspirin 81 mg tablet 81 mg PO QDAY 09/21/2406/23 History gabapentin enacarbil 600 mg 300 mg PO BID 09/21/2410/17 History tablet,extended release inclisiran 284 mg/1.5 mL 284 mg subcut USEASDIRECTD 1 06/23/25 History subcutaneous syringe (Leqvio) Allergies Allergy/AdvReac Type Severity Reaction Status Date / Time nitroglycerin Allergy Severe Hypotension Verified 09/21/24 10:35 Visit Medications Acetaminophen (Acetaminophen 325 Mg Tablet) 650 mg PO Q6H PRN PRN Reason: Fever >100.4 or pain Stop: 07/23/25 16:32 Amlodipine Besylate (Amlodipine Besylate 5 Mg Tablet) 5 mg PO QDAY SHANTEL Stop: 07/24/25 08:59 Dextrose (Dextrose 50%-Water Inj 50 Ml Syringe) 25 ml IV Q15MIN PRN PRN Reason: BG 50-70 responsive npo pt Stop: 07/23/25 16:53 Dextrose (Dextrose 50%-Water Inj 50 Ml Syringe) 50 ml IV Q15MIN PRN PRN Reason: BG <50 OR BG <70 & pt unresponsive Stop: 07/23/25 16:53 Glucagon (Glucagon Inj 1 Mg Vial) 1 mg IM Q15MIN PRN PRN Reason: BG <70, and no IV access Heparin Sodium/Dextrose (Heparin In D5w Ivpb) 25,000 unit in 250 mls @ 9.641 mls/hr IV .Q24H SHANTEL; Protocol Stop: 07/07/25 14:44 Last Admin: 06/23/25 15:50 Dose: 12 units/kg/hr, 9.641 mls/hr Insulin Human Lispro (Insulin Lispro (Admelog) 1 Unit/0.01 Ml Unit) 0 unit SC Q6HR SHANTEL; Protocol Stop: 07/23/25 17:59 Last Admin: 06/23/25 17:42 Dose: Not Given Labetalol HCl (Labetalol Inj 5 Mg/Ml Vial 20 Ml) 10 mg IVP Q6HR PRN PRN Reason: SBP >190 Stop: 07/23/25 16:42 Morphine Sulfate (Morphine Sulf Inj 4 Mg/Ml Vial) 1 mg IVP Q4H PRN PRN Reason: CHEST PAIN Ondansetron HCl (Ondansetron Inj 2 Mg/Ml Inj 2 Ml) 4 mg IVP Q6H PRN; Protocol PRN Reason: NAUSEA OR VOMITING Stop: 07/23/25 16:32 Sennosides (Senna Tablet) 1 tab PO QDAY PRN; Protocol PRN Reason: constipation Stop: 07/23/25 16:32 Discontinued Medications Amlodipine Besylate (Amlodipine Besylate 5 Mg Tablet) 5 mg PO X1 ONE Stop: 06/23/25 17:35 Last Admin: 06/23/25 17:48 Dose: 5 mg Aspirin (Aspirin 325 Mg Tablet) 325 mg PO X1 ONE Stop: 06/23/25 14:42 Last Admin: 06/23/25 15:06 Dose: 325 mg Clopidogrel Bisulfate (Clopidogrel Bisulfate 75 Mg Tablet) 75 mg PO X1 ONE Stop: 06/23/25 14:42 Last Admin: 06/23/25 15:06 Dose: 75 mg Heparin Sodium (Porcine) (Heparin Sod Inj 5000 Unit/Ml Vial) 4,000 unit IV X1 ONE; Protocol Stop: 06/23/25 14:42 Last Admin: 06/23/25 15:46 Dose: 4,000 unit Labetalol HCl (Labetalol Inj 5 Mg/Ml Vial 20 Ml) 10 mg IVP X1 ONE Stop: 06/23/25 16:07 Last Admin: 06/23/25 16:12 Dose: 10 mg Labetalol HCl (Labetalol Inj 5 Mg/Ml Vial 20 Ml) 10 mg IVP X1 PRN PRN Reason: hypertension Stop: 07/23/25 16:42 Nitroglycerin (Nitroglycerin Oint 2% 1 Inch Packet) 1 inch TOP Q6HR ONE Stop: 06/23/25 17:36 Last Admin: 06/23/25 17:45 Dose: 1 inch Assessment & Plan Plan Ezequiel Garcia is an 80-year-old male with a significant cardiac history including CAD status post CABG in 2007, stenting of left circumflex vein graft in 2023 on aspirin and plavix, type 2 diabetes mellitus, and hyperlipidemia who is admitted for work-up of ACS. #? Acute coronary syndrome #History of CAD status post CABG in 2007 #History of left circumflex vein graft stenosis requiring PCI in [address] Mack's office to the ED after waking up in the morning with crusting substernal chest pain that radiated to his left arm and jaw with associated shortness of breath. States that he felt similar symptoms with his prior blockage in 2023. EKG unremarkable and initial troponin negative, but given symptoms and prior history there is concern for ACS and will plan for cardiac cath tomorrow. Of note, patient was previously on aspirin and Brilinta but given that Brilinta was too expensive it was changed to Plavix after he went out of his Brilinta. ? Cardiac cath planned tomorrow, 06/24 ? N.p.o. after midnight ? Continue heparin drip ? Morphine as needed ? Nitroglycerin paste x 1 ? Continue aspirin and plavix #Hypertension #Hyperlipidemia #Type 2 diabetes mellitus ? Continue management per primary team ----- Plan discussed with attending physician Dr. Frederick Tavera MD PGY-2 Internal Medicine
[2025-06-23] MEDS: Heparin/D5w 25K 250 ML Ivpb 25,000 UNIT/250 ML BAG 9.446 UNIT IV (19:51)
[2025-06-23] MEDS: ONDANSETRON INJ 2 MG/ML INJ 2 ML 4 MG IVP (20:19)
--- NOTE | 2025-06-23 20:47 | PD.RESEVENT ---
Documentation for date of: 06/23/25 Event Note Event Note: Around 20:24, rapid response was called for dizziness and lightheadedness. On arrival, patient was alert and oriented, complaining of feeling dizzy as if the room was spinning. On exam he had no focal neurological deficits, thus no concern for stroke. Multiple vitals were performed, SBP was around 150-160, HR WNL, GLUCOSE WNL, afebrile, satting well on room air. Earlier, he had received a NITROGLYCERIN patch, and he has an allergy to NITROGLYCERIN i.e. hypotension. Symptoms are likely related to drastic drop in blood pressure, as he came in with a BP over 200 and significantly decreased to 150?160 after NITROGLYCERIN. I reviewed notes from morning team, and there is a LABETALOL order for SBP greater than 190. NITROGLYCERIN was discontinued, and reported significant improvement in lightheadedness since. He was also given a dose of ZOFRAN. Will continue to follow closely. Will avoid NITROGLYCERIN going forward. Additionally, patient has been on HEPARIN drip for chest pain and per cardiology recommendations. HEPARIN was held initially during the rapid, and was subsequently resumed. Case was discussed with attending physician. Melinda Hodge, PGY II This document was transcribed using voice recognition technology. Minor inaccuracies may be present.
[2025-06-23] MEDS: MORPHINE SULF INJ 4 MG/ML VIAL 1 MG IVP (21:27)
[2025-06-23 23:20] LABS: Partial Thromboplastin Time 39.9 Seconds (22.0-36.0)
[2025-06-24] VITALS (25 sets, daily range): BP systolic 120–175; BP diastolic 61–99; PULSE 52–70; RESP 11–98; TEMP 36.1–37.5; O2SAT 92–98; BMI 24.9
[2025-06-24 02:56] LABS: Partial Thromboplastin Time 40.2 Seconds (22.0-36.0)
[2025-06-24] MEDS: HEPARIN SOD INJ 5000 UNIT/ML VIAL 2000 UNIT IV (04:40)
[2025-06-24 05:37] LABS: Basophils # (Auto) 0.1 Thou/mm3 (0.0-0.2); Basophils % (Auto) 1 % (0-2.5); Eosinophils # (Auto) 0.2 Thou/mm3 (0.0-0.5); Eosinophils % (Auto) 4 % (0-10); Hematocrit 40.5 % (41.0-53.0); Hemoglobin 13.8 g/dL (13.5-16.0); Immature Granulocytes Auto 0.01 Thou/mm3 (0.00-0.00); Lymphocytes # (Auto) 1.9 Thou/mm3 (1.0-4.8); Lymphocytes % (Auto) 35 % (10-50); Mean Corpuscular HGB Conc 34.1 g/dl (31.0-37.0); Mean Corpuscular Hemoglobin 32.0 pg (25.0-35.0); Mean Corpuscular Volume 94 fL (80-100); Monocytes # (Auto) 0.5 Thou/mm3 (0.0-0.8); Monocytes % (Auto) 9 % (0-12); Neutrophils # (Auto) 2.8 Thou/mm3 (1.8-7.7); Neutrophils % (Auto) 51 % (37-80); Nucleated Red Blood Cell # 0.00 Thou/mm3 (0.00-0.00); Nucleated Red Blood Cell % 0 /100 WBC (0); Platelet Count 282 Thou/mm3 (140-440); RDW Standard Deviation 45.5 fL (35.1-43.9); Red Blood Count 4.31 Miln/mm3 (4.50-5.90); White Blood Count 5.4 Thou/mm3 (3.8-10.6)
[2025-06-24 05:47] LABS: Partial Thromboplastin Time 40.3 Seconds (22.0-36.0)
[2025-06-24 06:01] LABS: Alanine Aminotransferase 18 U/L (10-49); Albumin, Serum 4.1 gm/dL (3.4-4.8); Albumin/Globulin Ratio 2.1 (1.2-2.2); Alkaline Phosphatase 58 U/L (46-116); Anion Gap 9 (7-16); Aspartate Amino Transferase 19 U/L (0-34); BUN/Creatinine Ratio 12 Ratio (12-20); Bilirubin,Total 0.9 mg/dL (0.3-1.2); Blood Urea Nitrogen 13 mg/dL (9-23); Calcium 9.5 mg/dL (8.3-10.6); Calcium (Corrected) 9.5 mg/dL (8.5-10.1); Carbon Dioxide 26.8 mMol/L (20.0-31.0); Cardiac Risk Estimate 2.8 RATIO (4.0-6.7); Chloride 107 mMol/L (98-107); Cholesterol 150 mg/dL (132-200); Creatinine (Component) 1.1 mg/dL (0.6-1.3); Estimated Creatinine Clearance 53.5 mL/min (>60); Free T4 (Free Thyroxine) 1.27 ng/dL (0.89-1.76); Globulin 2.0 gm/dL (2.3-3.5); Glucose 115 mg/dL (74-106); HDL Cholesterol 54 mg/dL (40-60); LDL Cholesterol,Calculated 70 mg/dL (0-130); Magnesium 1.5 mg/dL (1.6-2.6); Osmolality,Calculated 286 (275-295); Potassium 4.2 mMol/L (3.4-5.1); Sodium 143 mMol/L (136-145); Thyroid Stimulating Hormone 3.27 uIU/mL (0.55-4.78); Total Protein 6.1 gm/dL (5.7-8.2); Triglycerides 128 mg/dL (30-150); eGFR > 60 See Note
[2025-06-24 06:26] LABS: Glucose Estimated Average 123 mg/dL (80-131); Hemoglobin A1C 5.9 % Hgb (4.8-6.0)
[2025-06-24] MEDS: MORPHINE SULF INJ 4 MG/ML VIAL 1 MG IVP ×2 (08:23→20:39)
[2025-06-24] MEDS: Magnesium Sulfate 4 GM Ivpb 4 GM/50 ML BAG IV (08:27)
--- NOTE | 2025-06-24 08:38 | ESPR_ITS ---
<Statement entered by Bennie Mack MD - 06/27/25 16:40> I personally examined the patient perform coronary angiogram bypass graft angiogram showed severe stenosis of bypass graft RCA underwent stent placement successfully with drug-eluting stent. Fairly well postprocedure quite sensitive to nitrates as nitrates were discontinued continue dual antiplatelet therapy aspirin Plavix will probably discharge home tomorrow eval the patient resident physician agree with the treatment plan recommendation as documented by Dr. Vigil Vtsmith Documentation for date of: 06/24/25 Subjective Subjective Interval history: Overnight rapid response called as patient endorsed feeling dizzy and lightheaded and was attributed to his reaction to nitroglycerin. Vital signs were stable and he remained alert and oriented and nitroglycerin was discontinued. He was then taken to labor operator today and underwent PCI, please see A&P for details and was monitored afterwards for a few hours as there were no complicatoins and he tolerated the procedure well. Exam Vital Signs Temp Pulse Resp BP Pulse Ox O2 Del Method 97.0 F 64 18 175/87 H 98 Room Air 06/24/25 04:00 06/24/25 08:25 06/24/25 04:00 06/24/25 08:25 06/24/25 04:00 06/24/25 04:00 Narrative Exam General: AOx3, no acute distress, able to speak full sentences HEENT: NC/AT, mucous membranes moist, bilateral sclera anicteric Cardiovascular: regular rate and rhythm, S1/S2 present, no murmurs appreciated Pulmonary: clear to auscultation bilaterally, no rales/rhonchi/wheezes Abdominal: soft, non-tender, non-distended, no rebound/guarding, normal bowel sounds present Musculoskeletal: normal ROM, no peripheral edema Skin: warm and dry, intact, no rashes Neuro: CN II-XII intact, no focal deficits Objective Labs 06/24/25 04:35 06/24/25 04:35 Labs: Laboratory Results - last 24 hr 06/23/25 06/23/25 06/24/25 14:47 22:30 02:00 WBC 5.5 RBC 4.45 L Hgb 14.5 Hct 42.7 MCV 96 MCH 32.6 MCHC 34.0 RDW Std Deviation 48.3 H Plt Count 307 Neut % (Auto) 60 Lymph % (Auto) 28 [place] % (Auto) 8 Eos % (Auto) 3 Baso % (Auto) 1 Neut # (Auto) 3.3 Lymph # (Auto) 1.6 [place] # (Auto) 0.4 Eos # (Auto) 0.1 Baso # (Auto) 0.0 Immature Gran # (Auto) 0.02 H Absolute Nucleated RBC 0.00 Immature Gran % 0 Nucleated RBC % 0 PT 10.4 INR 1.0 APTT 26.3 39.9 H D 40.2 H Sodium 142 Potassium 4.6 Chloride 108 H Carbon Dioxide 25.6 Anion Gap 8 BUN 15 Creatinine 1.2 Estim Creat Clear Calc 49.0 L eGFR > 60 BUN/Creatinine Ratio [address] Glu mg/dL Hemoglobin A1c Calculated Osmolality 289 Calcium 9.4 Corrected Calcium 9.4 Magnesium 1.6 Total Bilirubin 0.7 AST 20 ALT 20 Alkaline Phosphatase 64 Troponin I < 0.020 Total Protein 6.5 Albumin 4.4 Globulin 2.1 L Albumin/Globulin Ratio 2.1 Triglycerides Cholesterol LDL Cholesterol, Calc HDL Cholesterol Cholesterol/HDL Ratio TSH Free T4 06/24/25 04:35 WBC 5.4 RBC 4.31 L Hgb 13.8 Hct 40.5 L MCV 94 MCH 32.0 MCHC 34.1 RDW Std Deviation 45.5 H Plt Count 282 Neut % (Auto) 51 Lymph % (Auto) 35 [place] % (Auto) 9 Eos % (Auto) 4 Baso % (Auto) 1 Neut # (Auto) 2.8 Lymph # (Auto) 1.9 [place] # (Auto) 0.5 Eos # (Auto) 0.2 Baso # (Auto) 0.1 Immature Gran # (Auto) 0.01 H Absolute Nucleated RBC 0.00 Immature Gran % 0 Nucleated RBC % 0 PT INR APTT 40.3 H Sodium 143 Potassium 4.2 Chloride 107 Carbon Dioxide 26.8 Anion Gap 9 BUN 13 Creatinine 1.1 Estim Creat Clear Calc 53.5 L eGFR > 60 BUN/Creatinine Ratio 12 Glucose [address] Glu mg/dL 123 Hemoglobin A1c 5.9 Calculated Osmolality 286 Calcium 9.5 Corrected Calcium 9.5 Magnesium 1.5 L Total Bilirubin 0.9 AST 19 ALT 18 Alkaline Phosphatase 58 Troponin I Total Protein 6.1 Albumin 4.1 Globulin 2.0 L Albumin/Globulin Ratio 2.1 Triglycerides 128 Cholesterol 150 LDL Cholesterol, Calc 70 HDL Cholesterol 54 Cholesterol/HDL Ratio 2.8 L TSH 3.27 Free T4 1.27 Quality Measures Quality Measures none Advance care planning discussed with:: patient Assessment & Plan Assessment Current Active Medications: Generic Name Dose Route Start Last Admin Trade Name Freq PRN Reason Stop Dose Admin Acetaminophen 650 mg 06/23/25 16:33 Acetaminophen 325 Mg Tablet PO 07/23/25 16:32 Q6H PRN Fever >100.4 or pain Amlodipine Besylate 5 mg 06/24/25 09:00 06/24/25 08:25 Amlodipine Besylate 5 Mg Tablet PO 07/24/25 08:59 5 mg QDAY SHANTEL Administration Dextrose 25 ml 06/23/25 16:54 Dextrose 50%-Water Inj 50 Ml Syringe IV 07/23/25 16:53 Q15MIN PRN BG 50-70 responsive npo pt Dextrose 50 ml 06/23/25 16:54 Dextrose 50%-Water Inj 50 Ml Syringe IV 07/23/25 16:53 Q15MIN PRN BG <50 OR BG <70 & pt unresponsive Glucagon 1 mg 06/23/25 16:54 Glucagon Inj 1 Mg Vial IM Q15MIN PRN BG <70, and no IV access Heparin Sodium/Dextrose 25,000 unit in 250 mls @ 9.446 mls/hr 06/23/25 19:39 06/24/25 04:42 Heparin In D5w Ivpb IV 07/07/25 14:44 14 units/kg/hr .Q24H SHANTEL 11.021 mls/hr Protocol Titration 12 UNITS/KG/HR Magnesium Sulfate 4 gm in 50 mls @ 12.5 mls/hr 06/24/25 08:11 06/24/25 08:27 Magnesium Sulfate Ivpb IV 06/24/25 12:10 12.5 mls/hr X1 ONE Administration Insulin Human Lispro 0 unit 06/23/25 18:00 06/24/25 05:59 Insulin Lispro (Admelog) 1 Unit/0.01 Ml Unit SC 07/23/25 17:59 Not Given Q6HR [facility] Protocol Labetalol HCl 10 mg 06/23/25 16:53 Labetalol Inj 5 Mg/Ml Vial 20 Ml IVP 07/23/25 16:42 Q6HR PRN SBP >190 Morphine Sulfate 1 mg 06/23/25 17:24 10/02/25 08:23 Morphine Sulf Inj 4 Mg/Ml Vial IVP 1 mg Q4H PRN Administration CHEST PAIN Ondansetron HCl 4 mg 06/23/25 16:33 06/23/25 20:19 Ondansetron Inj 2 Mg/Ml Inj 2 Ml IVP 07/23/25 16:32 4 mg Q6H PRN Administration NAUSEA OR VOMITING Protocol Sennosides 1 tab 06/23/25 16:33 Senna Tablet PO 07/23/25 16:32 QDAY PRN constipation Protocol Plan Ezequiel Garcia is an 80-year-old male with a significant cardiac history including CAD status post CABG in 2007, stenting of left circumflex vein graft in 2023 on aspirin and plavix, type 2 diabetes mellitus, and hyperlipidemia who is admitted for work-up of ACS. #Acute coronary syndrome secondary to graft stenosis #History of CAD status post CABG in 2007 #History of left circumflex vein graft stenosis requiring PCI in [address] Mack's office to the ED after waking up in the morning with crusting substernal chest pain that radiated to his left arm and jaw with associated shortness of breath. States that he felt similar symptoms with his prior blockage in 2023. EKG unremarkable and initial troponin negative, but given symptoms and prior history there is concern for ACS and will plan for cardiac cath tomorrow. Of note, patient was previously on aspirin and Brilinta but given that Brilinta was too expensive it was changed to Plavix after he went out of his Brilinta. Cardiac cath 06/24: Vein graft of right coronary artery showed 90% discrete lesion in mid-portion of body of graft and was stented with embolic protection device. [place] RCA, left main as well as LAD and LCx remain occluded. Bypass graft to LCx has moderate disease at anastomotic site with 50% narrowing, MERCADO to LAD graft is widely patent. ? Aspirin and plavix daily starting tomorrow ? Can be discharged from cardiology perspective tomorrow if remains stable overnight ? Morphine as needed #Hypertension #Hyperlipidemia #Type 2 diabetes mellitus ? Continue management per primary team ----- Plan discussed with attending physician Dr. Frederick Tavera MD PGY-2 Internal Medicine
--- NOTE | 2025-06-24 09:33 | ESPR_ITS ---
<Statement entered by Riccardo Oneal MD - 06/24/25 15:05> Patient was seen and evaluated at bedside this morning. No acute overnight events. Patient remained n.p.o. after midnight for left heart cath today. Otherwise no new complaints, will continue with aspirin, Plavix, and stop heparin. Note reviewed and agree with resident's care plan as documented except as noted above. Case disclosed with attending Dr. Alessandra Oneal PGY2 Disclaimer: Even though this this note was dictated by speech recognition and even though it was carefully revised there may still be minor errors in demonstrator sewing techniques due to voice recognition software. Documentation for date of: 06/24/25 Subjective Subjective Interval history: Overnight, rapid response was called to lightheadedness and dizziness and it was discovered that patient was given Nitropatch in the ED when patient is allergic to nitro. Patient seen examined at bedside. Telemetry reviewed no arrhythmias noted. Patient complains of 6 out of 10 chest pain central nonradiating not associated with diaphoresis. Patient received morphine with relief. BP 160-200 over high 70s to 90s. Heart rate ranges 60 to 70s overnight in the 50s. Potassium 4.2, creatinine 1.1 A1c 5.9, magnesium 1.5, repleted with 4 g IV. Triglycerides 128 cholesterol 150 LDL 70 HDL 54. TSH and T4 within normal limits. [facility] planned for today. Continue Plavix and ASA 81 mg daily. Exam Vital Signs Temp Pulse Resp BP Pulse Ox O2 Del Method 97.4 F 64 14 175/87 H 96 Room Air 06/24/25 08:00 06/24/25 08:25 06/24/25 08:00 06/24/25 08:25 06/24/25 08:00 06/24/25 08:00 Narrative Exam GENERAL: AOx3, no acute distress HEENT: NC/AT, mucous membranes moist, bilateral sclera anicteric CARDIOVASCULAR: regular rate and rhythm, S1/S2 present, 2/6 systolic murmur PULMONARY: clear to auscultation bilaterally, no rales/rhonchi/wheezes ABDOMINAL: soft, non-tender, non-distended, no rebound/guarding, bowel sounds present EXTREMITIES: no peripheral edema SKIN: warm and dry, intact, no rashes NEURO: CN II-XII grossly intact, no focal deficits, alert, following commands Objective Labs 06/24/25 04:35 06/24/25 04:35 Labs: Laboratory Results - last 24 hr 06/23/25 06/23/25 06/24/25 14:47 22:30 02:00 WBC 5.5 RBC 4.45 L Hgb 14.5 Hct 42.7 MCV 96 MCH 32.6 MCHC 34.0 RDW Std Deviation 48.3 H Plt Count 307 Neut % (Auto) 60 Lymph % (Auto) 28 [place] % (Auto) 8 Eos % (Auto) 3 Baso % (Auto) 1 Neut # (Auto) 3.3 Lymph # (Auto) 1.6 [place] # (Auto) 0.4 Eos # (Auto) 0.1 Baso # (Auto) 0.0 Immature Gran # (Auto) 0.02 H Absolute Nucleated RBC 0.00 Immature Gran % 0 Nucleated RBC % 0 PT 10.4 INR 1.0 APTT 26.3 39.9 H D 40.2 H Sodium 142 Potassium 4.6 Chloride 108 H Carbon Dioxide 25.6 Anion Gap 8 BUN 15 Creatinine 1.2 Estim Creat Clear Calc 49.0 L eGFR > 60 BUN/Creatinine Ratio 13 Glucose [address] Glu mg/dL Hemoglobin A1c Calculated Osmolality 289 Calcium 9.4 Corrected Calcium 9.4 Magnesium 1.6 Total Bilirubin 0.7 AST 20 ALT 20 Alkaline Phosphatase 64 Troponin I < 0.020 Total Protein 6.5 Albumin 4.4 Globulin 2.1 L Albumin/Globulin Ratio 2.1 Triglycerides Cholesterol LDL Cholesterol, Calc HDL Cholesterol Cholesterol/HDL Ratio TSH Free T4 06/24/25 04:35 WBC 5.4 RBC 4.31 L Hgb 13.8 Hct 40.5 L MCV 94 MCH 32.0 MCHC 34.1 RDW Std Deviation 45.5 H Plt Count 282 Neut % (Auto) 51 Lymph % (Auto) 35 [place] % (Auto) 9 Eos % (Auto) 4 Baso % (Auto) 1 Neut # (Auto) 2.8 Lymph # (Auto) 1.9 [place] # (Auto) 0.5 Eos # (Auto) 0.2 Baso # (Auto) 0.1 Immature Gran # (Auto) 0.01 H Absolute Nucleated RBC 0.00 Immature Gran % 0 Nucleated RBC % 0 PT INR APTT 40.3 H Sodium 143 Potassium 4.2 Chloride 107 Carbon Dioxide 26.8 Anion Gap 9 BUN 13 Creatinine 1.1 Estim Creat Clear Calc 53.5 L eGFR > 60 BUN/Creatinine Ratio 12 Glucose [address] Glu mg/dL 123 Hemoglobin A1c 5.9 Calculated Osmolality 286 Calcium 9.5 Corrected Calcium 9.5 Magnesium 1.5 L Total Bilirubin 0.9 AST 19 ALT 18 Alkaline Phosphatase 58 Troponin I Total Protein 6.1 Albumin 4.1 Globulin 2.0 L Albumin/Globulin Ratio 2.1 Triglycerides 128 Cholesterol 150 LDL Cholesterol, Calc 70 HDL Cholesterol 54 Cholesterol/HDL Ratio 2.8 L TSH 3.27 Free T4 1.27 Quality Measures Quality Measures none Advance care planning discussed with:: patient Assessment & Plan Assessment Current Active Medications: Generic Name Dose Route Start Last Admin Trade Name Freq PRN Reason Stop Dose Admin Acetaminophen 650 mg 06/23/25 16:33 Acetaminophen 325 Mg Tablet PO 07/23/25 16:32 Q6H PRN Fever >100.4 or pain Amlodipine Besylate 5 mg 06/24/25 09:00 06/24/25 08:25 Amlodipine Besylate 5 Mg Tablet PO 07/24/25 08:59 5 mg QDAY SHANTEL Administration Dextrose 25 ml 06/23/25 16:54 Dextrose 50%-Water Inj 50 Ml Syringe IV 07/23/25 16:53 Q15MIN PRN BG 50-70 responsive npo pt Dextrose 50 ml 06/23/25 16:54 Dextrose 50%-Water Inj 50 Ml Syringe IV 07/23/25 16:53 Q15MIN PRN BG <50 OR BG <70 & pt unresponsive Glucagon 1 mg 06/23/25 16:54 Glucagon Inj 1 Mg Vial IM Q15MIN PRN BG <70, and no IV access Heparin Sodium/Dextrose 25,000 unit in 250 mls @ 9.446 mls/hr 06/23/25 19:39 06/24/25 04:42 Heparin In D5w Ivpb IV 07/07/25 14:44 14 units/kg/hr .Q24H SHANTEL 11.021 mls/hr Protocol Titration 12 UNITS/KG/HR Magnesium Sulfate 4 gm in 50 mls @ 12.5 mls/hr 06/24/25 08:11 06/24/25 08:27 Magnesium Sulfate Ivpb IV 06/24/25 12:10 12.5 mls/hr X1 ONE Administration Insulin Human Lispro 0 unit 06/23/25 18:00 10/02/25 05:59 Insulin Lispro (Admelog) 1 Unit/0.01 Ml Unit SC 07/23/25 17:59 Not Given Q6HR SHANTEL Protocol Labetalol HCl 10 mg 06/23/25 16:53 Labetalol Inj 5 Mg/Ml Vial 20 Ml IVP 07/23/25 16:42 Q6HR PRN SBP >190 Morphine Sulfate 1 mg 06/23/25 17:24 06/24/25 08:23 Morphine Sulf Inj 4 Mg/Ml Vial IVP 1 mg Q4H PRN Administration CHEST PAIN Ondansetron HCl 4 mg 06/23/25 16:33 06/23/25 20:19 Ondansetron Inj 2 Mg/Ml Inj 2 Ml IVP 07/23/25 16:32 4 mg Q6H PRN Administration NAUSEA OR VOMITING Protocol Sennosides 1 tab 06/23/25 16:33 Senna Tablet PO 07/23/25 16:32 QDAY PRN constipation Protocol Plan Ezequiel Garcia 80M pmhx significant for CAD s/p CABGx5 (2007) and s/p DESx1 vein graft of LCx (2023) on Brillinta, NIDDM2, HTN, HLD and hx of kidney stones who was sent to [facility] ED on 06/23 from crew leader/control room operator Dr. Mack's office for chest pain, admitted for unstable angina and [facility]. #Unstable Angina #CAD s/p CABG x5 (2007) and s/p DESx1 vein graft of LCx (2023) Presented with 3 episodes of 10/10 central, nonradiating chest pain with lightheadedness, not associated with diaphoresis or SOB. At home on ASA 81 mg QD and Brillinta 90 mg BID. Admission trops neg, EKG no ST elevation, sinus rhythm with PACs rate 71 Given patient's extensive cardiac history, patient will likely need cardiac catheterization for further investigation. Patient underwent cardiac catheterization 09/21/2024 which showed severe multivessel coronary artery disease, [place] band coronary arteries. RCA, LAD, circumflex all 100% occluded. MERCADO to LAD widely patent, vein graft to diagonal occluded, RCA vein graft is patent, vein graft to circumflex artery showed 80% stenosis in which stent was placed. s/p ASA loading dose and Plavix x1 in ED Plan: - Cardiology consulted, [facility] planned for today 1100 - Continue ASA 81 mg and plavix 75mg qday - IV morphine 1 mg q4h prn for chest pain as patient is allergic to nitro - Telemetry for cardiac monitoring - Keep K>4 and Mg>2 at all times #NIDDM2 #HLD #HTN At home patient is on metformin 1g BID and Leqvio 284 mg t2bedde. Patient does not seem to be on any hypertensives at home and reports SBP at home 160-170. 06/24/25 A1c 5.9, trig 128, [id number] LDL70, HDL 54. TSH and T4 wnl Plan: - SSI step [address] - IV labetalol 10 mg q6h prn for SBP>190 Hospital management: Lines: PIV Diet: Cardiac, NPO after midnight Bowel: Senna prn GI prophylaxis: not indicated DVT prophylaxis: heparin ggt Disposition: tele for scheduled cardiac cath today CODE STATUS: FULL CODE Plan of care discussed with attending Dr. Aparicio, and PGY-2 Dr. Benz. Margareth Gatica DO PGY-1 Internal Medicine Attending Provider Attestation/Addendum I have examined the patient, reviewed labs and imaging findings, discussed the case with the resident(s), and reviewed entered orders. I agree with the plan of care as outlined in this note, with these additional summaries/recommendations: Patient seen at bedside. Patient continued to have intermittent chest pain throughout the night. Patient was admitted yesterday for unstable angina and was sent to the hospital by cardiology. Patient was started on dual antiplatelet therapy and heparin gtt. Target APTT of 60 to 80 seconds. Continue high intensity statin. Morphine as needed for pain management. In- house cardiology consulted and patient will go for cardiac catheterization today. Mild hypomagnesia present and replacement given. Continue insulin sliding scale with Accu-Cheks for diabetes mellitus type 2. Continue home antihypertensives. Patient updated on the plan and in agreement. All questions answered satisfaction. Please see residents note for additional details and management. Dr. Alessandra MD
--- NOTE | 2025-06-24 09:38 | PC.NURSE ---
MD AWARE OF RAPID RESPONSE RELATED TO NITRO OVERNIGHT RESPONSE DIZZINESS FOR POSSIBLE HYPOTENSION.
--- NOTE | 2025-06-24 10:57 | PC.NURSE ---
1053 Dr. Mack aware of patient's reaction to nitroglycerin and stated it is ok to add nitroglycerin in Intraarterial cocktail for process laboratory specialist procedure, will monitor patient for reaction during procedure
[2025-06-24] MEDS: SODIUM CHLORIDE 0.9% 1000 ML 500 ML 100 ML IV (13:17)
[2025-06-24 15:39] LABS: ACT (CATH LAB ONLY) 210.0 Seconds (89-169)
--- NOTE | 2025-06-24 16:50 | PC.NURSE ---
1317 patient is awake, alert, breathing unlabored, s/p LHC by Dr. Mack, TR band present to right wrist, no bleeding or hematoma noted. Gauze and tegaderm present to right groin, no bleeding or hematoma noted. Patient to recover until about 1600 and TR band removed. Heparin drip to be stopped, ok to continue Aspirin 81mg and Plavix 75mg daily. Aspirin 81mg and plavix 75mg already given today in shop laborer OR. 1330 Report given to Beny ROSA 1441 Report received from Beny ROSA, patient tolerated food tray with no nausea or vomiting, Right groin and right wrist puncture sites remains clean, dry and intact. 1510 2ml air removed from TR band since hemostasis time 1306. 1610 TR band removed, hematoma noted, manual pressure applied 1625 Manual pressure applied from [id number], hematoma resolved. 1630 patient ambulated to bathroom and voided 1650 patient is awake, alert, breathing unlabored, dressing to right wrist and groin remain free of hematoma, report given to Raúl ROSA, patient transferred back to room 273 with tele box.
--- NOTE | 2025-06-24 17:01 | ESOP_ITS ---
RE: DONTE BOBBY : 1945 DATE OF OPERATION: 06/24/2025 PROCEDURES PERFORMED: 1. Diagnostic left heart cardiac catheterization, selective coronary angiogram, left ventricular angiogram, bypass graft angiogram, CPT 86016. 2. Selective cannulation of the left internal mammary artery, CPT 63967. 3. PCI stent placement of the vein graft to the right coronary artery, body of the vein graft, placement of the drug eluding stent 4.5 x 18 mm Medtronic Shahid drug-eluting stent 4.5 x 18 mm stent deployment With the use of embolic protection device for distal embolic protection spider Rx 5 mm device. Preprocedure stenosis 90%, postprocedure stenosis 0%. Preprocedure NATHAN flow 3, postprocedure NATHAN flow 3. CPT code 39391. 4. Iliofemoral angiogram followed by Angio-Seal deployment. 5. Conscious sedation, 1-hour duration. 6. Ultrasound-guided access to right radial and femoral arteries DIAGNOSES: Coronary artery disease status post bypass graft surgery, recurrent substernal chest pain, unstable angina pectoris, class IV angina at rest, acute coronary syndrome. HISTORY AND INDICATIONS: The patient is an 80-year-old male with a history of CAD status post bypass graft surgery who has had a stent placement of the vein graft circumflex artery in 08/2024, was doing fairly well until recently. He has crescendo unstable angina pectoris with chest pain at rest on minimal exertion. I recommended a PCI stent placement, possible vein graft occlusion if necessary. The patient was admitted to the hospital yesterday, was started on antiplatelet drug therapy and IV heparin and recommended to have coronary angiogram and cardiac catheterization for further evaluation. DESCRIPTION OF PROCEDURE: The patient was brought to the cardiac catheterization laboratory and was given 3 mg Versed and 50 mcg of fentanyl for conscious sedation. Right radial approach was initially undertaken. Right radial artery cannulated With ultrasound guidance micropuncture technique using 6-Grenadian glide sheath introduced. I was unable to pass a guidewire because of an extreme 360 radial loop and switched to a femoral approach. The femoral artery was cannulated by micropuncture technique. Ultrasound guidance was used and a 5-Grenadian sheath was introduced. Selective diagnostic right and left coronary angiogram was performed by a diagnostic catheter, FR4 and FL4 diagnostic catheter. Left heart catheterization and LV angiogram were performed with an FR4 diagnostic catheter. Subsequently, vein bypass graft angiography was performed by an FR4 diagnostic catheter. The vein bypass graft to the right coronary artery was cannulated by an FR4, and a bypass graft angiogram was performed. A left coronary artery bypass graft angiogram was performed. The circumflex bypass graft was cannulated using an LCB diagnostic catheter and a diagnostic bypass graft angiogram was performed. Subsequently, the left internal mammary artery was selectively cannulated using an FR4 diagnostic catheter and left internal mammary artery angiogram was performed. Diagnostic procedure showed following findings: Right coronary artery is totally occluded in mid segment. Vein graft of right coronary artery showed evidence of 90% discrete lesion in the mid portion of body of the vein graft NATHAN 3 flow. Left coronary system, left main coronary artery is normal. Left anterior descending artery has a occluded mid segment. Circumflex is also occluded in the mid segment. There is small dimension remained which is patent. Vein graft of the circumflex artery showed evidence of stenting in proximal segment which is widely patent. There is evidence of moderate anastomotic lesion appears to be not significant, appears to close to 50% disease. Left internal mammary artery, left anterior descending artery is widely patent. Left ventricular angiogram showed normal left ventricular wall motion. Ejection fraction of 70%. Left ventricular end diastolic pressure is 10-12. Full back pressure showed no evidence of aortic stenosis. Following diagnostic procedure intervention undertaken. The patient was given IV heparin, total of 8000 and ACT of therapeutic. Proceed with the PCI of the right coronary artery vein bypass graft. The patient had extensive disease of the graft and there was a risk of embolization. Hence, I proceeded with embolic protection device use. A 0.014 Runthrough guidewire was used to across the lesion successfully. A spider RX 5 mm embolic protection device then was placed distal to the lesion in the distal right coronary artery. We proceeded with direct stenting. A 4.5 x 18 mm length Shahid Medtronic stent was deployed successfully with 11 atmospheric pressures and was dilated successfully. Subsequently, there was evidence of NATHAN 1 flow. Distal embolization was detected. Intracoronary nitroglycerine 400 mcg was given along with Integrilin double bolus was given for antiplatelet drug therapy. The embolic protection device was then retrieved. The flow improved significantly after that, and the patient developed hypotension, bradycardia, and AV block requiring vasopressors neosynephrine as well as atropine briefly, but improved completely. ST-segment elevation completely resolved. After observing for 5 minutes, a final angiogram showed a widely patent vein graft to the right coronary artery with an excellent angiographic result NATHAN 3 flow. Subsequently, an iliofemoral angiogram was performed. An Angio-Seal was deployed successfully and hemostasis was secured. SUMMARY OF FINDINGS AND SUGGESTIONS: 1. [place] right coronary artery, left main occlusion as well as [place] LAD and circumflex artery occlusion. 2. Bypass graft to the circumflex artery is widely patent with moderate disease of the anastomotic site, 50% narrowing. 3. MERCADO to the LAD is widely patent. 4. Successful PCI stent placement of the vein bypass graft to the right coronary artery. Placement of drug eluding stent 4.5 x 18 mm drug-eluting stent [place] IT with embolic protection device Spider Rx use with excellent angiographic results and no complications during the procedure. PLAN: The patient will continue aspirin and Plavix. Probably discharging home tomorrow with medical management. DT: 15:20:30 TT: 16:53:00 Ref: [id number] - TID: [id number] MTDD
[2025-06-24] MEDS: INSULIN LISPRO (AdmeLOG) 1 UNIT/0.01 ML UNIT SC (17:24)
[2025-06-24] MEDS: ACETAMINOPHEN 325 MG TABLET 650 MG PO (18:12)
[2025-06-25] VITALS (7 sets, daily range): BP systolic 116–149; BP diastolic 70–83; PULSE 56–82; RESP 12–95; TEMP 36.2–37; O2SAT 94–98; BMI 25.2
[2025-06-25 06:01] LABS: Basophils # (Auto) 0.0 Thou/mm3 (0.0-0.2); Basophils % (Auto) 1 % (0-2.5); Eosinophils # (Auto) 0.2 Thou/mm3 (0.0-0.5); Eosinophils % (Auto) 3 % (0-10); Hematocrit 39.5 % (41.0-53.0); Hemoglobin 13.6 g/dL (13.5-16.0); Immature Granulocytes Auto 0.01 Thou/mm3 (0.00-0.00); Lymphocytes # (Auto) 1.2 Thou/mm3 (1.0-4.8); Lymphocytes % (Auto) 20 % (10-50); Mean Corpuscular HGB Conc 34.4 g/dl (31.0-37.0); Mean Corpuscular Hemoglobin 32.5 pg (25.0-35.0); Mean Corpuscular Volume 95 fL (80-100); Monocytes # (Auto) 0.6 Thou/mm3 (0.0-0.8); Monocytes % (Auto) 10 % (0-12); Neutrophils # (Auto) 3.7 Thou/mm3 (1.8-7.7); Neutrophils % (Auto) 66 % (37-80); Nucleated Red Blood Cell # 0.00 Thou/mm3 (0.00-0.00); Nucleated Red Blood Cell % 0 /100 WBC (0); Platelet Count 289 Thou/mm3 (140-440); RDW Standard Deviation 46.0 fL (35.1-43.9); Red Blood Count 4.18 Miln/mm3 (4.50-5.90); White Blood Count 5.7 Thou/mm3 (3.8-10.6)
[2025-06-25 06:17] LABS: Alanine Aminotransferase 18 U/L (10-49); Albumin, Serum 4.0 gm/dL (3.4-4.8); Albumin/Globulin Ratio 2.0 (1.2-2.2); Alkaline Phosphatase 62 U/L (46-116); Anion Gap 10 (7-16); Aspartate Amino Transferase 19 U/L (0-34); BUN/Creatinine Ratio 14 Ratio (12-20); Bilirubin,Total 0.9 mg/dL (0.3-1.2); Blood Urea Nitrogen 15 mg/dL (9-23); Calcium 8.9 mg/dL (8.3-10.6); Calcium (Corrected) 8.9 mg/dL (8.5-10.1); Carbon Dioxide 25.2 mMol/L (20.0-31.0); Chloride 106 mMol/L (98-107); Creatinine (Component) 1.1 mg/dL (0.6-1.3); Estimated Creatinine Clearance 53.5 mL/min (>60); Globulin 2.0 gm/dL (2.3-3.5); Glucose 128 mg/dL (74-106); Magnesium 2.0 mg/dL (1.6-2.6); Osmolality,Calculated 284 (275-295); Potassium 4.2 mMol/L (3.4-5.1); Sodium 141 mMol/L (136-145); Total Protein 6.0 gm/dL (5.7-8.2); eGFR > 60 See Note
[2025-06-25 06:22] LABS: INR 1.0 (0.9-1.3); Partial Thromboplastin Time 22.4 Seconds (22.0-36.0); Prothrombin Time 10.3 Seconds (9.0-12.2)
--- NOTE | 2025-06-25 07:50 | ESPR_ITS ---
<Statement entered by Bennie Mack MD - 06/27/25 16:40> I personally examined the patient and evaluated the resident physician PGY 2 Dr. Musa Tavera and patient is doing well we will discharge patient home on aspirin Plavix and rest of medications follow-up in 1 week following discharge. Documentation for date of: 06/25/25 Subjective Subjective Interval history: No acute overnight events. Vital signs are stable, CBC and chem panel are stable/unremarkable. Continue aspirin and plavix upon discharge. Takes Leqvio outpatient and LDL at 70 so no need to discharge on statin. Endorsed some chest discomfort prior to discharge but spoke to him at bedside and reassured that vital signs are stable and will follow-up outpatient. Exam Vital Signs Temp Pulse Resp BP Pulse Ox O2 Del Method 98.6 F 82 12 116/70 95 Room Air 06/25/25 04:00 06/25/25 04:00 06/25/25 04:00 06/25/25 04:00 06/25/25 04:00 06/25/25 04:00 Narrative Exam General: AOx3, no acute distress, able to speak full sentences HEENT: NC/AT, mucous membranes moist, bilateral sclera anicteric Cardiovascular: regular rate and rhythm, S1/S2 present, no murmurs appreciated Pulmonary: clear to auscultation bilaterally, no rales/rhonchi/wheezes Abdominal: soft, non-tender, non-distended, no rebound/guarding, normal bowel sounds present Musculoskeletal: normal ROM, no peripheral edema Skin: warm and dry, intact, no rashes Neuro: CN II-XII intact, no focal deficits Objective Labs 06/25/25 05:14 06/25/25 05:14 Labs: Laboratory Results - last 24 hr 06/24/25 06/25/25 12:22 05:14 WBC 5.7 RBC 4.18 L Hgb 13.6 Hct 39.5 L MCV 95 MCH 32.5 MCHC 34.4 RDW Std Deviation 46.0 H Plt Count 289 Neut % (Auto) 66 Lymph % (Auto) 20 Turner % (Auto) 10 Eos % (Auto) 3 Baso % (Auto) 1 Neut # (Auto) 3.7 Lymph # (Auto) 1.2 Turner # (Auto) 0.6 Eos # (Auto) 0.2 Baso # (Auto) 0.0 Immature Gran # (Auto) 0.01 H Absolute Nucleated RBC 0.00 Immature Gran % 0 Nucleated RBC % 0 PT 10.3 INR 1.0 APTT 22.4 D Activated Clotting Time 210.0 H Sodium 141 Potassium 4.2 Chloride 106 Carbon Dioxide 25.2 Anion Gap 10 BUN 15 Creatinine 1.1 Estim Creat Clear Calc 53.5 L eGFR > 60 BUN/Creatinine Ratio 14 Glucose 128 H Calculated Osmolality 284 Calcium 8.9 Corrected Calcium 8.9 Magnesium 2.0 Total Bilirubin 0.9 AST 19 ALT 18 Alkaline Phosphatase 62 Total Protein 6.0 Albumin 4.0 Globulin 2.0 L Albumin/Globulin Ratio 2.0 Quality Measures Quality Measures none Advance care planning discussed with:: patient Assessment & Plan Assessment Current Active Medications: Generic Name Dose Route Start Last Admin Trade Name Freq PRN Reason Stop Dose Admin Acetaminophen 650 mg 06/23/25 16:33 06/24/25 18:12 Acetaminophen 325 Mg Tablet PO 07/23/25 16:32 650 mg Q6H PRN Administration Fever >100.4 or pain Protocol Amlodipine Besylate 5 mg 06/24/25 09:00 06/24/25 08:25 Amlodipine Besylate 5 Mg Tablet PO 07/24/25 08:59 5 mg QDAY SHANTEL Administration Aspirin 81 mg 06/25/25 09:00 Aspirin 81 Mg Chew PO 07/25/25 08:59 QDAY SHANTEL Clopidogrel Bisulfate 75 mg 06/25/25 09:00 Clopidogrel Bisulfate 75 Mg Tablet PO 07/25/25 08:59 QDAY SHANTEL Dextrose 25 ml 06/23/25 16:54 Dextrose 50%-Water Inj 50 Ml Syringe IV 07/23/25 16:53 Q15MIN PRN BG 50-70 responsive npo pt Dextrose 50 ml 06/23/25 16:54 Dextrose 50%-Water Inj 50 Ml Syringe IV 07/23/25 16:53 Q15MIN PRN BG <50 OR BG <70 & pt unresponsive Glucagon 1 mg 06/23/25 16:54 Glucagon Inj 1 Mg Vial IM Q15MIN PRN BG <70, and no IV access Heparin Sodium/Dextrose 25,000 unit in 250 mls @ 9.641 mls/hr 06/23/25 14:45 06/24/25 13:17 Heparin In D5w Ivpb IV 07/07/25 14:44 Infused On Hold: 06/24/25 10:00 .Q24H SHANTEL Titration Protocol 12 UNITS/KG/HR Insulin Human Lispro 0 unit 06/25/25 07:30 06/25/25 07:39 Insulin Lispro (Admelog) 1 Unit/0.01 Ml Unit SC 07/25/25 07:29 Not Given ACHS SHANTEL Protocol Labetalol HCl 10 mg 06/23/25 16:53 Labetalol Inj 5 Mg/Ml Vial 20 Ml IVP 07/23/25 16:42 Q6HR PRN SBP >190 Ondansetron HCl 4 mg 06/23/25 16:33 06/23/25 20:19 Ondansetron Inj 2 Mg/Ml Inj 2 Ml IVP 07/23/25 16:32 4 mg Q6H PRN Administration NAUSEA OR VOMITING Protocol Sennosides 1 tab 06/23/25 16:33 Senna Tablet PO 07/23/25 16:32 QDAY PRN constipation Protocol Plan Ezequiel Garcia is an 80-year-old male with a significant cardiac history including CAD status post CABG in 2007, stenting of left circumflex vein graft in 2023 on aspirin and plavix, type 2 diabetes mellitus, and hyperlipidemia who is admitted for work-up of ACS. #Acute coronary syndrome secondary to graft stenosis #History of CAD status post CABG in 2007 #History of left circumflex vein graft stenosis requiring PCI in [address] Mack's office to the ED after waking up in the morning with crusting substernal chest pain that radiated to his left arm and jaw with associated shortness of breath. States that he felt similar symptoms with his prior blockage in 2023. EKG unremarkable and initial troponin negative, but given symptoms and prior history there is concern for ACS and will plan for cardiac cath tomorrow. Of note, patient was previously on aspirin and Brilinta but given that Brilinta was too expensive it was changed to Plavix after he went out of his Brilinta. Cardiac cath 06/24: Vein graft of right coronary artery showed 90% discrete lesion in mid-portion of body of graft and was stented with embolic protection device. [place] RCA, left main as well as LAD and LCx remain occluded. Bypass graft to LCx has moderate disease at anastomotic site with 50% narrowing, MERCADO to LAD graft is widely patent. ? Can be discharged from cardiology perspective with aspirin and plavix ? Morphine as needed #Hypertension #Hyperlipidemia #Type 2 diabetes mellitus ? Continue management per primary team ----- Plan discussed with attending physician Dr. Frederick Tavera MD PGY-2 Internal Medicine
[2025-06-25] MEDS: ASPIRIN 81 MG CHEW PO (08:10)
[2025-06-25] MEDS: CLOPIDOGREL BISULFATE 75 MG TABLET PO (08:10)
--- NOTE | 2025-06-25 09:40 | PC.SS ---
SS met with patient who is alert/oriented. Patient is independent with ADL's. Patient does not possess any DME. Patient still drives. Patient resides with and adult son. Admitted for chest pain. PCP: Dr. Sosa. Newspaper Columnist: Dr. Talamantes. Pharmacy: [facility]/[place]. Discharge plan is to return home with family. Patient went to cardiac cath yesterday. He is pending clearance from Cardiology. Possible d/c today or tomorrow per physician team. Alt medical decision maker: Diana Alfonso, or [phone]
--- NOTE | 2025-06-25 10:15 | CHAP ---
Patient was visited by the Spiritual Care Volunteer who prayed for them. (Volunteer was in the hospital from 09:30-10:15).
--- NOTE | 2025-06-25 14:26 | PC.SS ---
Rounding Note: Plan is to d/c patient today.
--- NOTE | 2025-06-25 14:46 | ESDS_ITS ---
<Statement entered by Riccardo Oneal MD - 06/25/25 17:30> Patient was seen and evaluated at bedside this morning. No acute overnight events. Patient had a PCI placed on the RCA yesterday by cardiology. Patient today was complaining some mild chest pain in the morning, but cardiology saw the patient and stated the patient was stable enough to be discharged home with aspirin, Plavix, amlodipine. At this time patient is stable enough to be discharged home. Note reviewed and agree with resident's care plan as documented except as noted above. Case disclosed with attending Dr. Alessandra Oneal PGY2 Disclaimer: Even though this this note was dictated by speech recognition and even though it was carefully revised there may still be minor errors in sql ssis developer due to voice recognition software. Planned Discharge Date 06/25/25 DS: Providers Provider Date of admission: 06/23/25 16:40 Primary care physician: Selwyn Sosa MD Admitting Provider: King Jara MD Attending Provider on Admission: Ezequiel Aparicio MD Consults: 06/23/25 14:45 Consult to Cardiology Stat Comment: acs Consulting Provider: Bennie Mack Attending Provider on DC: Ezequiel Aparicio MD Discharging Provider: Ezequiel Aparicio MD DS: Diagnosis Problem List Completed Was Problem List Reviewed/Reconciled?: Yes Hospital Course Hospital Course Hospital course: Summary: Ezequiel Garcia 80M pmhx significant for CAD s/p CABGx5 (2007) and s/p DESx1 vein graft of LCx (2023) on Brillinta, NIDDM2, HTN, HLD and hx of kidney stones who was sent to [facility] ED on 06/23 sent from risk compliance manager Dr. Mack's office for chest pain, admitted for unstable angina and LHC. Patient complained of 3 episodes of 10/10 central, nonradiating chest pain not associated with diaphoresis prior to admission. Admission troponins negative and EKG does not show ST segment changes. Upon admission, patient was placed on aspirin and he robert drip. On 06/24 patient underwent LHC with summary of findings: 1. [place] right coronary artery, left main occlusion as well as [place] LAD and circumflex artery occlusion. 2. Bypass graft to the circumflex artery is widely patent with moderate disease of the anastomotic site, 50% narrowing. 3. [place]CAD[place] to the LAD is widely patent. 4. Successful PCI stent placement of the vein bypass graft to the right coronary artery. Placement of drug eluding stent 4.5 x 18 mm drug-eluting stent OnGageIntronic with embolic protection device Spider Rx use with excellent angiographic results and no complications during the procedure. Postprocedure, patient reported mild chest tightness secondary to procedure. Patient is to be discharged on aspirin, Plavix and amlodipine and to continue home Leqvio. On discharge, patient is hemodynamically stable, labs and vitals reviewed patient is feeling ready to go home. Imagin/1 CXR no active disease Discharge Recommendations: - Please take all medications as prescribed - START aspirin 81 mg daily, Plavix 75 mg daily and amlodipine 5 mg daily - Continue all home medications except as above - Avoid heavy lifting - Please follow up with your PCP within one week of discharge - Please follow up with your cardiology within one week of discharge - If your symptoms worsen, please seek immediate medical attention and return to your nearest emergency room. - If you do not have a PCP, you may follow up at the [facility] at [address] [place] [address] [address], [facility] [address], Hospital Diagnoses: #Unstable Angina #CAD s/p CABG x5 (2007) and s/p DESx1 vein graft of LCx (2023) #NIDDM2 #HLD #HTN Margareth Gatica, DO Internal Medicine, PGY-1 Time Spent with Patient Time attestation: Total time spent providing and/or coordinating discharge services: Time spent: Greater than 30 minutes Exam Vital Signs Temp Pulse Resp BP Pulse Ox O2 Del Method 97.3 F 60 15 140/74 H 95 Room Air 06/25/25 12:00 06/25/25 12:00 06/25/25 12:00 06/25/25 12:00 06/25/25 12:00 06/25/25 12:00 Narrative Exam GENERAL: AOx3, no acute distress HEENT: NC/AT, mucous membranes moist, bilateral sclera anicteric CARDIOVASCULAR: regular rate and rhythm, S1/S2 present, 2/6 systolic murmur PULMONARY: clear to auscultation bilaterally, no rales/rhonchi/wheezes ABDOMINAL: soft, non-tender, non-distended, no rebound/guarding, bowel sounds present EXTREMITIES: no peripheral edema SKIN: warm and dry, intact, no rashes NEURO: CN II-XII grossly intact, no focal deficits, alert, following commands Discharge Plan Plan Patient Disposition: HOME (Self Care) Patient condition on transfer: Stable Care Plan Goals: Follow-up with primary care physician within 5 days upon discharge Follow-up if your risk compliance manager within 5 to 7 days after discharge Continue taking aspirin 81 mg, clopidogrel 75 mg daily, and amlodipine 5 mg daily as instructed by cardiology Continue all other home medications as prescribed Avoid heavy lifting for the next 7 days. Come back to the ER symptoms persist or worsen. Prescriptions/Referrals Prescriptions/Med Rec: New clopidogrel 75 mg tablet 75 mg PO QDAY Qty: 30 0RF amlodipine 5 mg tablet 5 mg PO QDAY Qty: 30 0RF Continued metformin [Glucophage] 500 MG tablet 1,000 mg PO BID Qty: 0 gabapentin enacarbil 600 mg Tablet Extended Release 300 mg PO BID Rx Instructions: administer daily at approximately 5 PM with food/evening meal Leqvio 284 mg/1.5 mL Syringe 284 mg SUBCUT USEASDIRECTD Rx Instructions: [id number] aspirin 81 mg Tablet 81 mg PO QDAY Patient Comments: PER PATIENT'S SINCE 06/20/25, PATIENT HAS BEEN TAKING (2) PILLS OF ASPIRIN TOTALING UP TO 162 MG OF ASPIRIN PER DAY, LAST DOSE WAS 06/22/25 Discontinued ticagrelor [Brilinta] 90 mg Tablet 90 mg PO BID 30 Days Qty: 60 1RF Referrals: Selwyn Sosa MD [Primary Care Provider, Internal Medicine] Bennie Mack MD [Physician, Cardiology] Patient/Caregiver Discharge Instructions Other Discharge Diet Instructions: Follow-up with primary care physician within 5 days upon discharge Follow-up if your risk compliance manager within 5 to 7 days after discharge Continue taking aspirin 81 mg, clopidogrel 75 mg daily, and amlodipine 5 mg daily as instructed by cardiology Continue all other home medications as prescribed Avoid heavy lifting for the next 7 days. Come back to the ER symptoms persist or worsen. Education Materials: Understanding the Pain Response, Measuring Your Pain, Complementary Care for Pain, Communicating About Pain, Coronary Angioplasty Stenting Dc, PCI Lifestyle, ED Chest Pain, Noncardiac, ED Chest Pain, Uncertain Cause, ED Pain, Acute, Uncertain Cause Print Language: Palestinian Stand Alone Forms: [employer]., Patient Portal Info Letter Discharge Order Discharge Orders: Discharge (Routine); Ordered 06/25/25 Ordered By: Riccardo Oneal Quality Discharge Quality Measures VTE prophylaxis MD Attestestation MD Attestation I have examined the patient, reviewed labs and imaging findings, discussed the case with the resident(s), and reviewed entered orders. I agree with the plan of care as outlined in this note. Time Spent: [address] Alessandra MD
== END 2025-06-25 15:41 | disposition home or self-care (01) | DRG 322 ==
LOC: SERX 15:44 → SERHOLD 17:30 → S2NX 18:31
PROVIDERS: Internal Medicine Cardiovascular Disease; Nurse Practitioner Family; Admitting Provider Internal Medicine; Emergency Provider Family Medicine; PCP Internal Medicine; Visit Provider Student in an Organized Health Care Education/Training Program
PROC: 027034Z Dilation of Coronary Artery, One Artery with Drug-eluting Intraluminal Device, Percutaneous Approach (ICD-10-PCS; principal; 2025-06-24 11:30)
DX: I25.110 Atherosclerotic heart disease of native coronary artery with unstable angina pectoris (principal); I24.9 Acute ischemic heart disease, unspecified; I10 Essential (primary) hypertension; E11.9 Type 2 diabetes mellitus without complications; E78.5 Hyperlipidemia, unspecified; E83.42 Hypomagnesemia; I25.82 Chronic total occlusion of coronary artery; Z95.1 Presence of aortocoronary bypass graft; Z87.442 Personal history of urinary calculi; I44.30 Unspecified atrioventricular block; Z79.02 Long term (current) use of antithrombotics/antiplatelets; Z79.4 Long term (current) use of insulin; Z79.82 Long term (current) use of aspirin; Z79.84 Long term (current) use of oral hypoglycemic drugs; Z88.8 Allergy status to other drugs, medicaments and biological substances
CPT/HCPCS: 36415; 71045; 80053; 80061; 83036; 83735; 84439; 84443; 84484; 85025; 85347; 85610; 85730; 93005; 94664; 96365; 96366; 96375; 99152; 99153; 99285; A4649; C1751; C1760; C1769; C1874; C1887; C1894; J0153; J0168; J0461; J1265; J1327; J1643; J1644; J1815; J2250; J2270; J2312; J2371; J2405; J3010; J3475; J3490; J7030; Q9967; A9270; C1725; J1920; J2305

== ENCOUNTER → 2025-07-19 | Outpatient (CLI) | payer MEDICARE, BC, SELFPAY ==
[2025-07-19 15:04] LABS: Cardiac Risk Estimate 3.6 RATIO (4.0-6.7); Cholesterol 173 mg/dL (132-200); HDL Cholesterol 48 mg/dL (40-60); LDL Cholesterol,Calculated 87 mg/dL (0-130); Triglycerides 189 mg/dL (30-150)
[2025-07-19 15:20] LABS: Glucose Estimated Average 126 mg/dL (80-131); Hemoglobin A1C 6.0 % Hgb (4.8-6.0)
== END | disposition home or self-care (01) ==
LOC: COPL 12:42
PROVIDERS: PCP Internal Medicine; Referring Provider Internal Medicine; Visit Provider Internal Medicine
DX: E11.65 Type 2 diabetes mellitus with hyperglycemia (principal)
CPT/HCPCS: 36415; 80061; 83036